=== PATIENT | male | born 1955 | race Caucasian/White ===

== ENCOUNTER → 2017-09-21 | Outpatient (CLI) | payer OTHER ==
[~2017-09-21] MED LIST: ALEVE220 MG PO; ATENOLOL 100MG100 MG PO; ATENOLOL 50 MG50 M1 PO; ATENOLOL 50MG T50 M1 PO; CIPRO500 MG PO; CLARITIN10 M2 PO; CLARITIN10 MG PO; ETODOLAC 400 M400 M1 PO; FLAX SEED OIL1000 MG PO; FLOMAX0.4 MG PO; HYDROCODONE-AP1 EAC6 PO; IBUPROFEN 200200 M1 PO; IBUPROFEN 800800 M1 PO; MUCINEX TA600 MG/TA2 PO; MULTIVITAMINS PO; MULTIVITAMINS1 EAC7 PO; NABUMETONE 750750 M1 PO; NORCO 5-325 TA1 EACH PO; PERCOCET 7.5-31 EACH PO; PERCOCET PO; WELLBUTRIN 100100 MG PO; WELLBUTRIN XL150 MG PO; ZOFRAN ODT4 MG PO; ZOFRAN4 MG PO
--- NOTE | 2017-10-06 13:59 | PAINCON ---
[address] [address] PAIN MANAGEMENT CONSULTATION Name: NAVIDEDMUND NORIEGA Room: [facility] SANDRA Martinez#: [id number] Admission: 09/21/17 Attend Phys: Toby Castellano MD Discharge: Date of : 51 Report #: [id number] THIS REPORT FOR: //name// CC: Toby Child DATE OF SERVICE: 09/21/2017 CHIEF COMPLAINT: Back pain and here for medication renewal. FOLLOWUP HISTORY: The patient is a 62-year-old gentleman who has been followed in the pain clinic by Dr. Floyd Crawford. This is my first time meeting this gentleman. He states that he has a history of back problems. He has had 3 surgeries. He is receiving about 60% benefit from his pain using a spinal cord stimulator. The [place] [facility] [place] His son lives there. 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 There was quite a bit of walking involved. The patient went to the [facility] as well as numerous other sites. He has noticed some worsening of his pain and discomfort. Overall, he feels that the oxycodone is beneficial. He would like to have this medication renewed. He also uses ibuprofen. He is not having any real problems with his stomach at this juncture. ALLERGIES: MORPHINE. CURRENT MEDICATIONS: Atenolol 100 mg daily, Mucinex 600 mg q.12 hours, Advil 200 mg, a total of 400 mg daily; multivitamin supplement; oxycodone 5/325 one p.o. t.i.d. p.r.n., and Flomax 0.4 mg q.24 hours. PAST MEDICAL HISTORY: Small bowel obstructions in the past, tonsillectomy, supraventricular tachycardia. PAST SURGICAL HISTORY: Lumbar L3-L5 surgery in 2013, hernia repair, left knee surgery in 2004, and tonsillectomy 1959. 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 Has a 1 pack per day tobacco use, 45-year history; 1-2 alcoholic drinks per day. REVIEW OF SYSTEMS: Generally good health, wears glasses, chronic sinus problems, and varicose veins. LABORATORY DATA: 1. MRI of the lumbar spine dated 01/13/2017 again identified as a leftward convexity scoliosis. There is straightening of the normal lumbar lordosis. There is an unchanged chronic compression deformity of the superior endplate of L3. There appears multilevel lumbar laminectomy and bone fusion. 2. L2-L3 demonstrates disc desiccation. [place] [address] PAIN MANAGEMENT CONSULTATION Name: EDMUND SHOEMAKER Room: [facility]#: [id number] Admission: 09/21/17 Attend Phys: Toby Castellano MD Discharge: Date of : 51 Report #: [id number] hyperintensity which is unchanged from previous studies. The prior study appears to be decompression of the disc at this level with bilateral neural foraminal narrowing present. 3. L3-L4 demonstrate disc space narrowing and disc desiccation. 4. L4-L5 demonstrates disc space narrowing and disc desiccation with a posterior disc osteophyte complex, which effaces the ventral thecal sac. There is bilateral facet hypertrophy and a laminectomy defect. There is endplate reaching and intraspinal spurring related to the facet arthrosis. This causes bilateral neural foraminal stenosis, left greater than right with effacement and flattening of both the L4-L5 nerve roots. The findings are greatest at the left, but unchanged from 2013. 5. L5-S1 demonstrates mild posterior disc bulging, which is eccentric to the left. There is a laminectomy defect. Again identified in the left lateral recess narrowing and severe left-sided neural foraminal stenosis with marked flattening of the exiting L5 nerve root. There is eccentric disc space narrowing and endplate osteophyte formation on the left as well. Some marked left-sided neural foraminal stenosis has not significantly changed from prior study. PAIN CLINIC ASSESSMENT: 1. History of osteoarthritis. The patient has arthritic changes in the lower back. 2. Height 5 feet 7 inches. Weight 143 pounds, BMI is 22. 3. VITAL SIGNS: Blood pressure 146/88, heart rate 69, respiratory rate 16, room air saturation 95, and temperature 98.2. 4. Pain intensity 4/10. 5. Fall risk. The patient has not fallen in the last 3 months. 6. Blood thinner. The patient is not taking a blood thinning medication. 7. Hypertension. The patient is being treated for hypertension. 8. Opioid greater than 6 weeks. The patient is on an opioid regimen and receives his medications from one source. 9. Risk assessment tool. 10. Functional assessment tool. 11. Recreational drug use. The patient denies use of recreational drugs. 12. Tobacco. He has a greater than 43-year history of tobacco, 1 pack per day. 13. Alcohol. The patient does drink alcoholic beverages on occasion. PHYSICAL EXAMINATION: GENERAL: The patient is a well-developed, well-nourished white male. He appears his stated age. He is alert and oriented x 3. Affect is appropriate. Speech is fluent. HEENT: Normocephalic, atraumatic. Extraocular eye muscles intact. Hearing is within normal limits. NECK: Without adenopathy or JVD, no bruits. HEART: Regular rate. S1, S2. LUNGS: Clear to auscultation without [place] [address] PAIN MANAGEMENT CONSULTATION Name: NAVIDEDMUND LEANN Room: [facility]#: [id number] Admission: 09/21/17 Attend Phys: Toby Castellano MD Discharge: Date of : 53 Report #: [id number] ABDOMEN: Nontender. EXTREMITIES: Upper extremity muscle strength is judged to be 5/5 for the major muscle groups with symmetry without sensory changes. Deep tendon reflexes trace. Lower extremity muscle strength is judged to be 5/5 for the major muscle groups. Decreased to absent knee reflexes at the knees and ankles bilaterally. The patient complains of pain and discomfort in the lower portion of his back pain down into the lower portion of his left hip and leg. IMPRESSION: 1. Lumbar radiculopathy with history of spinal cord stimulator placement. 2. Hypertension. 3. Chronic pain. 4. Prostatic hypertrophy. RECOMMENDATIONS: We discussed treatment options with the patient. At this juncture, he feels that things are going reasonably well. The stimulator is quite helpful. He would like to have his oxycodone renewed. The patient states that he sometimes has some constipation with use of opioid medications, so he takes them oftentimes very infrequently. He feels that things have improved since his has provided him with Senokot-S. He feels that is quite helpful in keeping his bowels moving. He will return to the pain clinic as needed. We would like to thank you for letting us participate in his care. We hope he continues to improve. <ELECTRONICALLY SIGNED> By: Toby Castellano MD 10/06/17 1359 [id number]. Jordy Castellano MD /nt
== END ==
LOC: M.PC 00:07
DX: M54.16 Radiculopathy, lumbar region (principal); I10 Essential (primary) hypertension; N40.0 Benign prostatic hyperplasia without lower urinary tract symptoms; G89.29 Other chronic pain

== ENCOUNTER → 2017-11-03 | Outpatient (CLI) | payer OTHER ==
--- NOTE | 2017-11-04 07:04 | PAINCON ---
[facility] [address] [place] [address] PAIN MANAGEMENT CONSULTATION Name: EDMUND SHOEMAKER Room: [facility] SANDRA Martinez#: [id number] Admission: 11/03/17 Attend Phys: Kwan Wilson Discharge: Date of : 53 Report #: [id number] THIS REPORT FOR: //name// CC: Floyd Crawford The patient is a very pleasant 62-year-old gentleman, long been treated for symptomatic lumbar radiculopathy. He was last seen in the pain clinic on 09/21/[address] Jordy Castellano. Prior, he had treated him for lumbar radicular symptoms. We had trialled a spinal cord stimulator. Ultimately, this was implanted (Muxlim) with good overall improvement in baseline pain. The patient is status post lumbar decompressive laminectomy at L5-S1. The patient notes that the spinal cord stimulator affords very good relief of his ongoing radicular pain. He uses hydrocodone 5/325, 0-1/2 a tablet a day up to a max of 3-4 tablets a day. Last prescription for 75 tablets was generated about 6 weeks ago. He returns to pain clinic today noting subjective pain score is 1-2 on a VAS. Pain is primarily low back, left hip. He has contacted [employer] regarding adjusting the spinal cord stimulator. Notes pain is "nuisance" and really does not interfere with function. PHYSICAL EXAMINATION: Shows pleasant a 5 feet 7 inches, 142 pound gentleman, BMI is 22.9 kilograms per meter squared. Blood pressure 136/77, pulse 69, respirations 16. Rises from chair easily. Gait is tandem. Diffuse tenderness across the low back. No discrete trigger points are noted. Still has some weakness in the left side, though this has been present since his back surgery now some 40 years ago. We reviewed the fact that opiate medications are being used to provide analgesia adequate to support activities of daily living, not attempting to achieve a specific pain score on the 0-10 Visual Analog Scale. The current opiate medications are providing sufficient analgesia to allow the patient to participate in activities of daily living. The patient is not exhibiting any aberrant behavior suggestive of drug diversion. The patient is not having any adverse reactions to medications. The patient is not suffering from daytime somnolence or mental acuity changes. The patient is managing opiate-induced constipation with appropriate [id number] agents and dietary considerations. The patient was counseled on concern for caution with operating a motor vehicle while using opiate medications. A physical exam was performed and the patient's functional status was evaluated. All patients with back pain were advised against the bed rest greater than 4 days and were advised to return to normal activities. Pain score assessment was noted and the treatment plan was reviewed with [place] [address] PAIN MANAGEMENT CONSULTATION Name: EDMUND SHOEMAKER [facility] [id number] Admission: 11/03/17 Attend Phys: Kwan Wilson Discharge: Date of : 53 Report #: [id number] medications, both prescribed and OTC were reviewed and reconciled on the electronic medical record. Tobacco screening was accomplished and smoking cessation was advised when indicated. BMI was noted and diet/exercise modification was recommended for all patients following outside normal parameters. I reviewed with the patient today their responsibilities to safeguard prescription medications, reviewed their responsibility to utilize medications only as prescribed by the physician. They are to seek and receive pain medications only from 1 physician group ( [facility]). They are to use 1 pharmacy and keep the clinic informed if they change pharmacies. Their responsibilities include making followup visits in a timely fashion and to avoid abrupt discontinuation of medication usage. Their responsibilities further include bringing their medications (bottles from the pharmacy with residual pills) to the visit for possible confirmation of pill counts and the patient understands it is their responsibility to submit to random drug screens to ensure both that the medications prescribed are present, and that no other controlled substances are present. All prescriptions provided today were generated electronically. ASSESSMENT: Chronic axial back pain, lumbar radiculopathy, status post decompressive laminectomy, ongoing neuropathic pain. We will control with nominal opiate analgesic. RECOMMENDATIONS: We will renew Percocet 5/325, limit 90 tablets for 30 days, though in reality, this will probably last him 6-10 weeks. Discharged in good and stable condition. Follow up on an as needed basis. <ELECTRONICALLY SIGNED> By: Floyd Crawford DO 11/04/17 0704 [id number] 1857Floyd Crawford DO /nt
== END ==
LOC: M.PC 04:47
DX: M54.16 Radiculopathy, lumbar region (principal); G89.29 Other chronic pain

== ENCOUNTER → 2017-12-28 | Outpatient (CLI) | payer OTHER ==
--- NOTE | 2018-02-07 10:00 | PAINCON ---
[address] [address] PAIN MANAGEMENT CONSULTATION Name: EDMUND SHOEMAKER LEANN Room: [facility] Martinez#: [id number] Admission: 12/28/17 Attend Phys: Toby Castellano MD Discharge: Date of : 53 Report #: [id number] THIS REPORT FOR: //name// CC: Toby Child DO DATE OF SERVICE: 12/28/2017 CHIEF COMPLAINT: Low back pain on the left with pain in the left hip and down the left leg. The pain has been a little worse over the last month. FOLLOWUP HISTORY: The patient is a 62-year-old gentleman, who has been seen in the pain clinic in the past because of chronic pain. He has had back problems. He has had three back surgeries. He does have a spinal cord stimulator in place at this juncture, which he finds provides him about 60% pain relief. Overall, he feels that his medications are helpful. He finds that the oxycodone continues to be beneficial. At this juncture, he has returned today for renewal of his medications. He has had no complication from their use. He feels that the ibuprofen remains helpful. He feels that the DotAlign spinal cord stimulator is beneficial. He feels that his pain is not as overbearing as it was prior to his stimulator placement. CURRENT MEDICATIONS: Atenolol 100 mg daily, Mucinex 600 mg q.12 hours, Advil 200 mg, total of 400 mg daily; multivitamin supplements, oxycodone 5/325 one p.o. t.i.d. p.r.n., and Flomax 0.4 mg q.24 hours. ALLERGIES: THE PATIENT IS ALLERGIC TO MORPHINE. PAIN CLINIC ASSESSMENT: 1. History of osteoarthritis.: The patient has arthritic changes in his lower back. 2. Pain score is 2/10. 3. Fall risk. The patient has not fallen in the last 3 months. 4. Blood thinner. The patient is not on a blood thinning medication. 5. Hypertension. The patient is being treated for hypertension. 6. Opioid therapy greater than 6 weeks. The patient is receiving his opioid medications in the pain clinic, [facility]. 7. Risk assessment tool. 8. Functional assessment tool. 9. Recreational drug use. The patient denies use of recreational drugs. 10. Tobacco: The patient has a greater than 43-year history of tobacco smoke, smokes 1 pack per day. 11. Alcohol: The patient denies use of alcoholic beverages. PHYSICAL EXAMINATION: [place] [address] PAIN MANAGEMENT CONSULTATION Name: NAVIDEDMUND LEANN Room: [facility]#: [id number] Admission: 12/28/17 Attend Phys: Toby Castellano MD Discharge: Date of : 53 Report #: [id number] GENERAL: The patient is a well-developed, well-nourished white male. He appears his stated age. He is alert and oriented x 3. His affect is appropriate. Speech is fluent. Height is 5 feet 7 inches, weight is 143 pounds, and BMI is 22.5. VITAL SIGNS: Blood pressure is 131/69, heart rate is 63, respiratory rate is 16, room air saturation is 96%, and temperature is 98.0. HEENT: Normocephalic, atraumatic. Extraocular eye muscles are intact. Hearing is within normal limits. Mucous membranes are moist. NECK: Without adenopathy or JVD. No bruits. HEART: Regular rate. S1, S2. LUNGS: Clear to auscultation without rhonchi or rales. EXTREMITIES: Upper extremity muscle strength is judged to be 5/5 for the major muscle groups of the upper extremity with symmetry and without sensory changes. Deep tendon reflexes are trace. Lower extremity muscle strength is judged to be 5/5 for the major muscle groups. Decreased absent reflexes at the knees and ankles bilaterally. The patient does complain of some pain and discomfort in the lower portion of his back with pain that is radiating down the left hip and into the left leg. IMPRESSION: 1. Lumbar radiculopathy with history of spinal cord stimulator, status post three surgeries in the lumbar area. 2. Hypertension. 3. Chronic pain. 4. Prostatic hypertrophy. RECOMMENDATIONS: We have discussed treatment options with the patient. Risks and benefits of opioid medications were discussed. He has had a long discussion with Dr. Crawford as well. He is aware that the medications could be helpful. He notes that use of opioid medications can cause dependence/addiction. The patient feels that he is using his medication as prescribed. They enable him to engage in activities of daily living with less discomfort. He is aware that prolonged use of these medications can become less effective as a result of tolerance. He would like to have his medications renewed. A script for his medications has been written. A script for Percocet 5/325 one p.o. t.i.d., total of 90 tablets have been dispensed. He will follow up in the future as needed. We would like to thank you for letting us to participate in his care. We hope he continues to improve. <ELECTRONICALLY SIGNED> By: Toby Castellano MD 02/07/18999 [id number] [id number]. Jordy Castellano MD /RENEA
== END ==
LOC: M.PC 03:48
DX: M54.16 Radiculopathy, lumbar region (principal); I10 Essential (primary) hypertension; N40.1 Benign prostatic hyperplasia with lower urinary tract symptoms; G89.29 Other chronic pain; M19.90 Unspecified osteoarthritis, unspecified site

== ENCOUNTER → 2018-02-03 | Outpatient (CLI) | payer OTHER ==
--- NOTE | 2018-02-07 10:30 | PAINCON ---
[address] [address] PAIN MANAGEMENT CONSULTATION Name: EDMUND SHOEMAKER Room: [facility] Martinez#: [id number] Admission: 02/03/18 Attend Phys: Toby Castellano MD Discharge: Date of : 51 Report #: [id number] THIS REPORT FOR: //name// CC: Toby Child DATE OF SERVICE: 02/03/2018 CHIEF COMPLAINT: Here for medications. Pain in the left hip and down the left leg remains. HISTORY OF PRESENT ILLNESS: The patient is a 62-year-old gentleman who has been followed in the pain clinic because of chronic pain. He has pain and discomfort which involves his low back area. He has undergone 3 back surgeries. Does have a spinal cord stimulator in place. Feels that it is helpful. Finds that his oxycodone continues to be beneficial. He returns today with the desire to undergo renewal of his medications. States that there is quite a bit of chaos going on in his house. Has some grandkids at his house. Has heating and cooling group at his house. Has other professionals working at his house. He feels that the combination of all these things has made his life somewhat complicated. Continues to have pain that is radiating down from his left hip to his left calf in the L5-S1 distribution. Finds that the 7.5 oxycodone medications, continue to be helpful. He had been breaking them in half. This will provide him with 3.25 mg of oxycodone. Now that he realizes that 5 mg taking one tablet at time is more pain relieving. ALLERGIES: MORPHINE. CURRENT MEDICATIONS: Atenolol 100 mg daily, Mucinex 60 mg q.12h., Advil 200 mg, total of 400 mg taken, multivitamin, oxycodone 5/325 one p.o. t.i.d., and Flomax 0.4 mg q. 24 hours. PAIN CLINIC ASSESSMENT/PQRS: 1. History of osteoarthritis. The patient has had some arthritic change in his low back area. Has left hip pain. 2. Height 5 feet 7 inches, weight 142 pounds, BMI is 22.2. 3. Vital signs: Blood pressure 143/79, heart rate 73, respiratory rate 16, room air saturation 97%. Temperature 98.2. 4. Pain score 2/10. 5. Fall history: The patient has not fallen in the last 3 months. 6. Blood thinner. The patient is not on a blood thinning medication. 7. Hypertension. The patient is being treated for hypertension. 8. Opioid medications greater than 6 weeks. The patient receives this medication from [facility], the pain clinic. 9. Risk assessment tool. 10. [place] [address] PAIN MANAGEMENT CONSULTATION Name: EDMUND SHOEMAKER Room: [facility]#: [id number] Admission: 02/03/18 Attend Phys: Toby Castellano MD Discharge: Date of : 53 Report #: [id number] 11. Recreational drug use: The patient denies. 12. Tobacco: The patient has greater than a 49-iszt-vzmh history of tobacco smoking. Continues to smoke 1 pack of cigarettes per day. I have discussed the benefits of smoking cessation. 13. Alcohol: The patient denies frequent use of alcoholic beverages. PHYSICAL EXAMINATION: GENERAL: The patient is a well-developed, well-nourished white male. Appears his stated age. He is alert and oriented x 3. His affect is appropriate. Speech is fluent. Height 5 feet 7 inches. HEENT: Normocephalic, atraumatic. Extraocular eye muscles intact. Sclerae nonicteric. Mucous membrane is moist. Hearing is within normal limits. NECK: Without adenopathy or JVD, bruits. HEART: Regular rate. S1, S2. LUNGS: Clear to auscultation without rhonchi or rales. EXTREMITIES: Without significant scoliosis, kyphosis, or lordosis. Upper extremity muscle strength is judged to be 5/5 for the major muscle groups. The patient's deep tendon reflexes are traces. Lower extremity muscle strength is judged to be 5/5. The patient has decreased/absent reflexes at the knees and ankles bilaterally. The patient has some pain and discomfort in his left hip and left calf. Walks with a slightly antalgic gait. Discomfort in the L5-S1 distribution. IMPRESSION: 1. Lumbar radiculopathy with history of spinal cord stimulator, status post three surgeries in the lumbar spine. 2. Hypertension. 3. Chronic pain treated with opioid medication. 4. Prostatic hypertrophy. RECOMMENDATIONS: We discussed treatment options with the patient. Risks and benefits of opioid therapy were discussed. The patient feels that the opioid medications are helpful. He was taking one half tablet. This would be about 3.25 mg of oxycodone. Realize, that he could take a whole 5mg tablet. He was taking less than he could because he was breating the tablets in half. He thought they were 7.5 mg, but they actuality are 5mg tabs. He will continue with his medication. Feels that there is some calamity going on in his house. Has had some problem with heating and cooling. Has had his grandkids over and has another contractor working out of his house at this juncture to help fix a problem. He would like to continue with his medications. A script for the medications of OxyContin 5 mg 1 p.o. t.i.d., total of 90 [place] [address] PAIN MANAGEMENT CONSULTATION Name: ÍVCTOREDMUND FARMER Room: [facility]#: [id number] Admission: 02/03/18 Attend Phys: Toby Castellano MD Discharge: Date of : 53 Report #: [id number] We would like to thank you for letting us participate in his care. We hope he continues to improve. <ELECTRONICALLY SIGNED> By: Toby Castellano MD 02/07/18 1030 [id number]. Jordy Castellano MD /nt
== END ==
LOC: M.PC 05:19
DX: M19.90 Unspecified osteoarthritis, unspecified site (principal); M25.552 Pain in left hip; I10 Essential (primary) hypertension; W19.XXXA Unspecified fall, initial encounter; Z79.891 Long term (current) use of opiate analgesic

== ENCOUNTER → 2018-03-24 | Outpatient (CLI) | payer OTHER ==
--- NOTE | 2018-04-01 17:20 | PAINCON ---
[address] [address] PAIN MANAGEMENT CONSULTATION Name: NAVIDEDMUND NORIEGA Room: [facility] Martinez#: [id number] Admission: 03/24/18 Attend Phys: Toby Castellano MD Discharge: Date of : 51 Report #: [id number] THIS REPORT FOR: //name// CC: Toby Child DATE OF SERVICE: 03/24/2018 CHIEF COMPLAINT: Low back pain and the spinal cord stimulators relief, 50%-70% of the pain. FOLLOWUP HISTORY: The patient is a 62-year-old gentleman who has been followed in the pain clinic because of chronic pain. As you recall, he has a history of low back pain. He has had 3 back surgeries. He has undergone a spinal cord stimulator. Finds that the this is helpful. Feels that use of the spinal cord stimulator in conjunction with the oxycodone 5 mg 1 p.o. t.i.d. are helpful. He is having no complications. As you may recall, he continues to work. He is quite active. He works for [employer]. Rates his pain as a 2/10. He would like to continue with his current medical regimen of oxycodone. ALLERGIES: MORPHINE. MEDICATIONS: Atenolol 100 mg daily, Mucinex 60 mg q.12 hours, Advil 200 mg total of 400 mg, multivitamin, and oxycodone 5/325 one p.o. t.i.d., Flomax 0.4 mg q. 24 hours. PAIN CLINIC ASSESSMENT/PQRS: 1. History of osteoarthritis. The patient has some arthritic changes in his low back area. Has left hip pain. 2. The patient is not being treated for history of osteoarthritis. 3. Height 5 feet 7 inches, weight 145 pounds, BMI is 22.8. 4. Vital signs: Blood pressure 136/80, heart rate 70, respiratory rate 16, room air saturation 95%, temperature 98.2. 5. Pain intensity 06/05. 6. Fall history: The patient has not fallen in the last 3 months. 7. Blood thinner. The patient is not on a blood thinning medication. 8. Hypertension. The patient is being treated for hypertension. 9. Opioids greater than 6 weeks. The patient receives medication from one source, the pain clinic. 10. Risk assessment tool, low for opioid use. 11. Functional assessment tool. 12. Recreational drug use. The patient denies use of recreational drugs. 13. Tobacco: The patient has greater than [id number] history of smoking. The patient continues to smoke 1 pack of cigarettes per day. Discussed the benefits of smoking cessation with the patient. 14. Alcohol: The patient denies [place] [address] PAIN MANAGEMENT CONSULTATION Name: NAVIDEDMUND SOWERY Room: [facility]#: [id number] Admission: 03/24/18 Attend Phys: Toby Castellano MD Discharge: Date of : 51 Report #: [id number] PHYSICAL EXAMINATION: GENERAL: The patient is a well-developed, well-nourished white male. Appears his stated age. He is alert and oriented x 3. His affect is appropriate. Speech is fluent. HEENT: Normocephalic, atraumatic. Extraocular eye muscles intact. Sclerae nonicteric. Mucous membranes are moist. NECK: Without adenopathy or JVD. HEART: Regular rate rest S1, S2. LUNGS: Clear to auscultation without rhonchi or rales upper extremity without significant scoliosis, kyphosis or lordosis. Upper extremity muscle strength 5/5 for the major muscle groups. The patient has lower extremity muscle strength which is 5-/5. Has some decreased/absent reflexes knees and ankles bilaterally. Complains of some pain and discomfort in his left hip and pain down into the left calf. Walks with a slight antalgic walk. Has discomfort in the L5-S1 distribution. IMPRESSION: 1. Lumbar radiculopathy with history of spinal cord stimulator, status post three surgeries in the lumbar spine. 2. Hypertension. 3. Chronic pain treated with opioid therapy. 4. Prostatic hypertrophy. RECOMMENDATIONS: We discussed treatment options with the patient. We will continue with his current medications. A script for oxycodone 5 mg 1 p.o. t.i.d. has been written. The patient will call us if he has any concerns. He feels that his pain overall as better at about 75% with use of a spinal cord stimulator. We would like to thank you for letting us participate in his care. We hope he continues to improve. He will call us if he has any concerns. <ELECTRONICALLY SIGNED> By: Toby Castellano MD 04/01/18 1720 [id number]. Jordy Castellano MD /nt
== END ==
LOC: M.PC 03:48
DX: M54.16 Radiculopathy, lumbar region (principal); G89.29 Other chronic pain; I10 Essential (primary) hypertension; N40.0 Benign prostatic hyperplasia without lower urinary tract symptoms; Z79.891 Long term (current) use of opiate analgesic

== ENCOUNTER → 2018-05-03 | Outpatient (CLI) | payer OTHER ==
--- NOTE | ~2018-05-03 | PAINCON ---
[address] [address] PAIN MANAGEMENT CONSULTATION Name: NAVIDEDMUND NORIEGA Room: [facility] Juan#: [id number] Admission: 05/03/18 Attend Phys: Toby Castellano MD Discharge: Date of : 51 Report #: [id number] THIS REPORT FOR: //name// CC: Toby Child ____ ____ DATE OF SERVICE: 05/03/2018 CHIEF COMPLAINT: Here for medication renewal. I got over case of bronchitis. FOLLOWUP HISTORY: The patient is a 62-year-old gentleman who has been followed in the pain clinic because of chronic pain. He rates his pain today as a 2-3/10. Has pain in his low back. Pain radiates down into his left leg. States that about a week ago, he was feeling quite poorly. Had some difficulty breathing. Went to an urgent care center. He was told that he had a significant bronchitis. He was given antibiotics and medication. States that things have turned around significantly. He continues to try to decrease his use of tobacco. As you recall, he smokes about a pack a day and has smoked for the last 4-5 years. He is hopeful that he will continue to decrease his tobacco usage. ALLERGIES: MORPHINE. MEDICATIONS: Atenolol 100 mg -- history of SVT, Mucinex 60 mg, Advil 200 mg, multivitamin, oxycodone 5/325 one p.o. t.i.d., Flomax 0.4 mg every 48 hours. PAIN CLINIC ASSESSMENT/PQRS: 1. History of osteoarthritis. The patient has some osteoarthritic changes in the low back area, has left hip pain. 2. The patient is not being treated for rheumatoid arthritis. 3. Height 5 feet 7 inches, weight 145 pounds, BMI is 22.2. 4. Vital signs: Blood pressure 133/80, heart rate is 68, respiratory rate 18, room air saturation 96%, temperature 98.3. 5. Pain intensity 06/05. 6. Fall history. The patient has not fallen in the last 3 months. 7. Blood thinner. The patient is not on blood thinning medication. 8. Hypertension. The patient is not being treated for hypertension. 9. Opioid greater than 6 weeks. The patient receives medications from [facility]. 10. Risk assessment tool, low for opioid use. 11. Functional assessment tool. 12. Recreational drug use. The patient denies use of recreational drugs. 13. Tobacco: The patient has about a 45 years smoking history, is down to less than a pack of cigarettes per day, continues to work for the goal of stopping tobacco use. Again, discussed the benefits of tobacco cessation [place] [address] PAIN MANAGEMENT CONSULTATION Name: NAVIDEDMUND NORIEGA [facility] [id number] Admission: 05/03/18 Attend Phys: Toby Castellano MD Discharge: Date of : 51 Report #: [id number] patient 14. Alcohol: The patient denies use of alcoholic beverages on a regular basis, may drink one to two alcoholic beverages. PHYSICAL EXAMINATION: GENERAL: The patient is well-developed, well-nourished white male. Appears his stated age. He is alert and oriented x3. Affect is appropriate. Speech is fluent. HEAD, EYES, EARS, NOSE, AND THROAT: Normocephalic, atraumatic. Extraocular eye muscles intact. Sclerae nonicteric. Mucous membranes are moist. NECK: Without adenopathy or JVD. HEART: Regular rate. S1, S2. LUNGS: Generally clear, without significant rhonchi or rales. MUSCULOSKELETAL: Without scoliosis, kyphosis or lordosis. Upper extremity muscle strength is judged to be 5/5 for the major muscle groups. Lower extremity muscle strength 5-/5 with pain down into the left leg. The patient is not showing much of an antalgic gait today. Discomfort when present is the L5-S1 distribution. IMPRESSION: 1. Lumbar radiculopathy with history of spinal cord stimulator, status post three surgeries in the lumbar spine. 2. Hypertension. 3. Chronic pain treated with opioid therapy. 4. Prostatic hypertrophy. 5. Recent episode of bronchitis. RECOMMENDATIONS: We discussed treatment options with the patient. At this juncture, we will continue with his current medications. He feels that things are about 70% better with his medications. He feels spinal cord stimulator still is beneficial. He has returned today for renewal of his medications. He feels his medications are working well, would like to continue their use. Again, we discussed the problems with opioid medications, which could be of addiction as well as in less affected secondary to tolerance. Overall, he feels things are going well. A script for his medications has been written. He will follow up in the future as needed. We would like to thank you for letting us to participate in his care. By: [id number]. Jordy Castellano MD /RENEA
== END ==
LOC: M.PC 08:00
DX: M54.16 Radiculopathy, lumbar region (principal); G89.29 Other chronic pain; I10 Essential (primary) hypertension; N40.0 Benign prostatic hyperplasia without lower urinary tract symptoms; J40 Bronchitis, not specified as acute or chronic; Z79.899 Other long term (current) drug therapy

== ENCOUNTER → 2018-05-31 | Outpatient (CLI) | payer OTHER ==
--- NOTE | ~2018-05-31 | PAINCON ---
[address] [address] PAIN MANAGEMENT CONSULTATION Name: NAVIDEDMUND LEANN Room: [facility] Martinez#: [id number] Admission: 05/31/18 Attend Phys: Toby Castellano MD Discharge: Date of : 51 Report #: [id number] THIS REPORT FOR: //name// CC: Toby Child DATE OF SERVICE: 05/31/2018 CHIEF COMPLAINT: Here for medications. I have gotten cold. Otherwise, I would like to get an injection. FOLLOWUP HISTORY: The patient is a 62-year-old gentleman who has been followed in the pain clinic. He has chronic pain. His pain is a bit more problematic. He is experiencing pain that is radiating down the lower portion of his back into his left leg and involving his foot. He notes some numbness and tingling. He is still in the process of getting over the cold. He would like to get an epidural steroid injection, but feels that his cold might make things worse. He has had a history of bronchitis. He has been treated in the past with antibiotics. He still smokes and is trying to decrease his tobacco use. He feels that the change in weather, which has become quite cold has exacerbated his discomfort. Notes that pain increases with activity as well as with the cold weather and with prolonged walking, sitting and standing. Does have a spinal cord stimulator in place. ALLERGIES: MORPHINE. MEDICATIONS: Atenolol 100 mg - history of SVT, Mucinex 60 mg, Advil 200 mg, multivitamins, oxycodone 5/325 one p.o. t.i.d., Flonase 0.4 mg q. 48 hours. PAIN CLINIC ASSESSMENT: 1. History of osteoarthritis in the low back area and then his left hip. He is not being treated for rheumatoid arthritis. 2. Height 5 feet 7 inches, weight 144 pounds, BMI is 22.6. 3. Vital signs: Blood pressure 141/79, heart rate 74, respiratory rate 16, room air saturation 95%, and temperature is 98.2. 4. Pain intensity score 2-3/10. 5. Fall history: The patient has not fallen since we saw him last. 6. Blood thinner. The patient is not on a blood thinning medication. 7. Hypertension. The patient is not being treated for hypertension. 8. Opiates greater than 6 weeks. The patient receives his medications from one source, the pain clinic. 9. Risk assessment tool, low for a little opioid use. 10. Functional assessment tool. 11. Recreational drug use. The patient denies use of recreational drugs use. 12. Tobacco. The patient has a 45-year smoking history. He is down to less than a pack of cigarettes per day, continues to decrease [place] [address] PAIN MANAGEMENT CONSULTATION Name: EDMUND SHOEMAKER [facility] [id number] Admission: 05/31/18 Attend Phys: Toby Castellano MD Discharge: Date of : 51 Report #: [id number] at one half pack a day at this juncture. 13. Alcohol. The patient denies use of alcoholic beverages on a regular basis. PHYSICAL EXAMINATION: GENERAL: The patient is a well-developed, well-nourished white male. Appears his stated age. He is alert and oriented x 3. His affect is appropriate. Speech is fluent. HEENT: Normocephalic, atraumatic. Extraocular eye muscles intact. Sclerae nonicteric. Mucous membranes are moist. NECK: Without adenopathy or JVD. HEART: Regular rate. LUNGS: Generally clear. The patient has some coughing and rales. MUSCULOSKELETAL: Without significant scoliosis, kyphosis, or lordosis. Upper extremity muscle strength is judged to be 5-/5 for the major muscle groups. Lower extremity muscle strength 5-/5 on the left side. The patient has pain and discomfort which is radiating down into his left leg with numbness and tingling and sensory changes in the L5-S1 dermatomal distribution. IMPRESSION: 1. Lumbar radiculopathy with history of spinal cord stimulator, status post three surgeries in the lumbar spine area. 2. Hypertension. 3. Chronic pain treated with opioid therapy. 4. Prostate hypertrophy. 5. Episodes of bronchitis. 6. Improving the upper respiratory infection. RECOMMENDATION: The patient will return to the pain clinic after resolution of the upper way infection. He will then undergo an epidural steroid injection. Risks and benefits of the procedure had been discussed with the patient. He will return for evaluation and possibility of an injection in the future. A script for his medications of oxycodone 5 mg 1 p.o. t.i.d. have been written. We would like to thank you for letting us participate in his care. We hope he continues to improve. By: [id number]. Jordy Castellano MD /ceci
== END ==
LOC: M.PC 04:43
DX: M54.16 Radiculopathy, lumbar region (principal); I10 Essential (primary) hypertension; G89.29 Other chronic pain; J40 Bronchitis, not specified as acute or chronic; J06.9 Acute upper respiratory infection, unspecified; N40.1 Benign prostatic hyperplasia with lower urinary tract symptoms; Z79.899 Other long term (current) drug therapy; Z79.891 Long term (current) use of opiate analgesic

== ENCOUNTER → 2018-06-28 | Outpatient (CLI) | payer OTHER ==
--- NOTE | ~2018-06-28 | PAINCON ---
[address] [address] PAIN MANAGEMENT CONSULTATION Name: VÍCTORDICKSONRUBYEDMUND NORIEGA Room: [facility] Juan#: [id number] Admission: 06/28/18 Attend Phys: Toby Castellano MD Discharge: Date of : 51 Report #: [id number] THIS REPORT FOR: //name// CC: Toby Child DATE OF SERVICE: 06/28/2018 CHIEF COMPLAINT: Pain down the left leg with numbness and tingling. FOLLOWUP HISTORY: The patient is a 62-year-old gentleman who has been followed in the Pain Clinic. As you recall, he has a history of low back pain. He has undergone back surgery in the past. He has been experiencing increased pain and discomfort radiating down to the left leg. He notes that the pain has been quite problematic this morning. He notes that with the cold weather, things have changed. He has tried and adjusted his dorsal column stimulator but still finds his pain is quite uncomfortable. He has had epidural steroid injections in the past. He would like to proceed with an epidural steroid injection at this juncture. Pain continues to radiate down his left leg, involving the foot. He feels that the Percocet medication is of some help. Overall, he is 78-80% improved. The patient continues to work on decreasing the use of tobacco. ALLERGIES: MORPHINE. CURRENT MEDICATIONS: Atenolol 100 mg - history of SVT, Mucinex 60 mg, Advil 200 mg, multivitamins, oxycodone 5/325s one p.o. t.i.d., Flonase 0.4 mg q. 48 hours. PAIN CLINIC ASSESSMENT/PQRS: 1. History of osteoarthritis of low back area, involving the left hip. He is not being treated for rheumatoid arthritis. 2. Height 5 feet 7 inches, weight 143 pounds, BMI is 22. 3. Vital signs: Blood pressure 145/76, heart rate 69, respiratory rate 16, room air saturation 94%, temperature 98.1. 4. Pain intensity: 06/05. 5. Fall history: The patient has not fallen in the last 3 months. 6. Blood thinner: The patient is not on a blood thinning medication. 7. Hypertension: The patient is not being treated for hypertension. 8. Opioids greater than 6 weeks: The patient is receiving his medication through [facility]. 9. Risk assessment tool: Low for opioid use. 10. Functional assessment tool. 11. Recreational drug use. The patient denies use of recreational drugs. 12. Tobacco: The patient continues to smoke, has a 45-year history of smoking. I have encouraged the patient to decrease smoking and the patient states that he is trying. 13. Alcohol: The patient denies use of alcoholic [place] [address] PAIN MANAGEMENT CONSULTATION Name: EDMUND SHOEMAKER [id number] Admission: 06/28/18 Attend Phys: Toby Castellano MD Discharge: Date of : 51 Report #: [id number] PHYSICAL EXAMINATION: GENERAL: The patient is a well-developed, well-nourished white male. He appears his stated age. He is alert and oriented x 3. His affect is appropriate. Speech is fluent. HEENT: Normocephalic, atraumatic. Extraocular eye muscles are intact. Sclerae are nonicteric. Mucous membranes are moist. NECK: Without adenopathy or JVD. HEART: Regular rate. LUNGS: Clear to auscultation, without rhonchi or rales. MUSCULOSKELETAL: Without significant scoliosis, kyphosis, or lordosis: The patient has a well-healed scar in the lower portion of his back. He has an indwelling spinal cord stimulator on the left side of his low back area. The patient has pain and discomfort, which is radiating down into the L5-S1 dermatomal distribution in the back of his leg with numbness and tingling. IMPRESSION: 1. Lumbar radiculopathy with history of spinal cord stimulator, status post 3 surgeries in the lumbar area. 2. Hypertension. 3. Chronic pain, treated with opioid therapy. 4. Prostate hypertrophy. 5. Episodes of bronchitis. 6. Improving/improved respiratory infection. RECOMMENDATION: The patient is having pain and discomfort, which is radiating down into the L5-S1 dermatomal distribution. The patient would like to proceed with a transforaminal epidural steroid injection to help quell and decrease the pain and discomfort he is experiencing. We discussed risks and benefits of the procedure. They include but are not limited to infection, worsening of pain, no improvement in pain, nerve damage, bleeding, and infection. The patient elects to proceed. PROCEDURE NOTE: The patient was assisted in getting onto the examination table. His back was sterilely prepped with a Betadine solution. It was allowed to dry. Fluoroscopy using the anterior, posterior as well as lateral viewing were implemented. At the left L5-S1 dermatomal area, 0.25% bupivacaine was infiltrated. A 20-gauge spinal needle was advanced into the appropriate placement using fluoroscopy, anterior as well as lateral. Aspiration was negative. A total of 80 mg Depo-Medrol, 40 mg triamcinolone was injected into this area. The patient tolerated this transforaminal epidural steroid injection without problem. A total of 52 seconds fluoroscopy time was used. The patient's pain decreased to 1 at the time of discharge. He will follow [place] [address] PAIN MANAGEMENT CONSULTATION Name: NAVIDEDMUND SOWERY Room: [facility]#: [id number] Admission: 06/28/18 Attend Phys: Toby Castellano MD Discharge: Date of : 51 Report #: [id number] We would like to thank you for letting us participate in his care. We hope he continues to improve. By: [id number]. Jordy Castellano MD /nt
== END | disposition home or self-care (01) ==
LOC: M.PC 04:28
DX: M54.16 Radiculopathy, lumbar region (principal); I10 Essential (primary) hypertension; G89.29 Other chronic pain; Z88.8 Allergy status to other drugs, medicaments and biological substances; M19.90 Unspecified osteoarthritis, unspecified site; Z79.899 Other long term (current) drug therapy; Z98.890 Other specified postprocedural states; F11.20 Opioid dependence, uncomplicated

== ENCOUNTER → 2018-08-02 | Outpatient (CLI) | payer MEDICARE, OTHER | END | disposition home or self-care (01) | LOC: M.PC 05:03 | DX: M54.16 Radiculopathy, lumbar region (principal) ==

== ENCOUNTER → 2018-08-30 | Outpatient (CLI) | payer MEDICARE, OTHER ==
--- NOTE | ~2018-08-30 | PAINCON ---
[facility] [address] [place] [address] PAIN MANAGEMENT CONSULTATION Name: EDMUND SHOEMAKER LEANN Room: [facility] Juan#: [id number] Admission: 08/30/18 Attend Phys: Toby Castellano MD Discharge: Date of : 51 Report #: [id number] THIS REPORT FOR: //name// CC: Toby Child DATE OF SERVICE: 08/30/2018 CHIEF COMPLAINT: Pain in the left leg has improved. I was up on a ladder about 18 feet cleaning off my gutters. Noticed some increased pain after that. HISTORY: The patient is a 63-year-old gentleman who has been followed in the pain clinic. As you recall, he has had surgeries in the low back area. Continues to have pain in the left hip area in the L5-S1 area. He underwent a transforaminal epidural steroid injection at the last visit. Notes that his pain was significantly improved after that. He did climb up on the roof and after that activity, he has noticed some increased pain. States that his pain is a 1/10 at this juncture. He has had no complications. ALLERGIES: MORPHINE. CURRENT MEDICATIONS: Atenolol 100 mg, history of SVT; Mucinex 60 mg; Advil 200 mg; multivitamin; oxycodone 5 mg 1 p.o. t.i.d., Flonase 0.4 mg q. 4 hours. PAIN CLINIC ASSESSMENT/PQRS: 1. The patient has pain and discomfort in the left hip with pain radiating down to the L5-S1 area. He is not being treated for rheumatoid arthritis. 2. Height 5 feet 7 inches, weight 139 pounds, BMI is 21.9. 3. Vital Signs: Blood pressure 121/69, heart rate 70, respiratory rate 16, room air saturation 95%, temperature 98.1. 4. Pain intensity 05/05. 5. Fall History: The patient has not fallen in the last 3 months. 6. Blood thinner. The patient is not on a blood thinning medication. 7. Hypertension. The patient is not being treated for hypertension. 8. Opiates greater than 6 weeks. The patient receives medications from [facility], the [facility] Clinic. 9. Risk assessment tool, low for opioid use. 10. Functional assessment tool. 11. Recreational drug use. The patient denies use of recreational drugs. 12. Tobacco: The patient continues to smoke, has a 45-year smoking history. Encouraged smoking cessation. 13. Alcohol: The patient denies use of alcoholic beverages. PHYSICAL EXAMINATION: GENERAL: The patient is a well-developed, well-nourished white male. Appears his stated age. He is alert and oriented x 3. [place] [address] PAIN MANAGEMENT CONSULTATION Name: EDMUND SHOEMAKER [facility] [id number] Admission: 08/30/18 Attend Phys: Toby Castellano MD Discharge: Date of : 51 Report #: [id number] Speech is fluent. HEENT: Normocephalic, atraumatic. Extraocular eye muscles intact. Sclerae nonicteric. Mucous membranes are moist. NECK: Without adenopathy or JVD. HEART: Regular rate. ABDOMEN: Nontender. Bowel sounds present. LUNGS: Clear to auscultation without rhonchi or rales. MUSCULOSKELETAL: Without significant scoliosis, kyphosis or lordosis. The patient has well-healed scar in the lower portion of his back. Has an indwelling spinal cord stimulator on the left side. Continues to have some pain in the left leg with tingling. IMPRESSION: 1. Lumbar radiculopathy with L5-S1 on the left. 2. Spinal cord stimulator in place status post three surgeries. 3. Hypertension. 4. Chronic pain treated with opioid therapy. 5. Prostatic hypertrophy. 6. Episodes of bronchitis. 7. Improved respiratory infection. RECOMMENDATIONS: We discussed treatment options with the patient. At this juncture, he will have a renewal of his pain medications. A script for oxycodone 5 mg 1 p.o. t.i.d. has been written. He will call us in the future. He will consider another transforaminal epidural steroid injection. We would like to thank you for letting us participate in his care. We hope he continues to improve. By: [id number]. Jordy Castellano MD /nt
== END ==
LOC: M.PC 04:37
DX: M54.16 Radiculopathy, lumbar region (principal); G89.29 Other chronic pain; I10 Essential (primary) hypertension; J06.9 Acute upper respiratory infection, unspecified; N40.0 Benign prostatic hyperplasia without lower urinary tract symptoms; J40 Bronchitis, not specified as acute or chronic; Z79.891 Long term (current) use of opiate analgesic

== ENCOUNTER → 2018-09-27 | Outpatient (CLI) | payer MEDICARE, OTHER ==
--- NOTE | 2018-10-26 14:27 | PAINCON ---
[address] [address] PAIN MANAGEMENT CONSULTATION Name: EDMUND SHOEMAKER LEANN Room: [facility] Juan#: [id number] Admission: 09/27/18 Attend Phys: Toby Castellano MD Discharge: Date of : 51 Report #: [id number] THIS REPORT FOR: //name// CC: Toby Child DATE OF SERVICE: 09/27/2018 FOLLOWUP COMPLAINT: Pain has been quite bad over the last 3 weeks. FOLLOWUP HISTORY: The patient is a 63-year-old gentleman who has been followed in the pain clinic because of chronic pain. As you recall, he has had surgeries in his low back area. Continues to have some left hip pain in the L5-S1 dermatomal distribution. Last injection was quite helpful. He has noted over the last couple of weeks, worsening of pain, which has been quite problematic. He has pain, which he rates as 5 initially and it can decrease to 2 with certain activities over a period of time. He has not had any falls. He feels that the medications that he is on are working reasonably well. ALLERGIES: MORPHINE. CURRENT MEDICATIONS: Atenolol 100 mg at bedtime for history of SVT, Mucinex 60 mg, Advil 200 mg, multivitamin, oxycodone 5 mg 1 p.o. t.i.d. PAIN CLINIC ASSESSMENT AND PQRS: 1. The patient has left hip pain with pain that radiates down in the L5-S1 dermatomal distribution. He is not being treated for rheumatoid arthritis. 2. Height 5 feet 7 inches, weight 139 pounds, BMI is 21.9. 3. Vital signs: Blood pressure 135/77, heart rate 69, respiratory rate 16, room air saturation 95%, temperature 98.2. 4. Pain intensity 2/10 at this juncture. 5. Fall history. The patient has not fallen in the last 3 months. 6. Blood thinner. The patient is not on any blood thinning medication. 7. Hypertension. The patient has not been treated for hypertension. 8. Opioids greater than 6 weeks. The patient received medication through the pain clinic. 9. Risk assessment tool, low for opioid use. 10. Functional assessment tool. 11. Recreational drug use. The patient denies use of recreational drugs. 12. Tobacco: The patient continues to smoke and has smoked for about 45 years. We have discussed smoking cessation with the patient. PHYSICAL EXAMINATION: GENERAL: The patient is a well-developed, well-nourished male who appears his stated age. He is alert and oriented x 3. His affect is appropriate[place] [address] PAIN MANAGEMENT CONSULTATION Name: EDMUND SHOEMAKER Room: [facility] Martinez#: [id number] Admission: 09/27/18 Attend Phys: Toby Castellano MD Discharge: Date of : 51 Report #: [id number] HEENT: Normocephalic, atraumatic. Extraocular eye muscles intact. Sclerae nonicteric. Mucous membranes are moist. NECK: Without adenopathy or JVD. HEART: Regular rate. S1, S2. ABDOMEN: Nontender. Bowel sounds present. MUSCULOSKELETAL: Upper extremity muscle strength judged to be 5/5 for the major muscle groups in the upper extremity. The patient without significant scoliosis, kyphosis or lordosis. The patient has some well-healed scars in the lower portion of his back. He has pain that is radiating down in the L5-S1 dermatomal distribution on the left. Notes some numbness, tingling as well as weakness in this area. IMPRESSION: 1. Lumbar radiculopathy with L5-S1 on the left. 2. Spinal cord stimulator in place, status post 3 surgeries. 3. Hypertension. 4. Chronic pain, treated with opioid therapy. 5. Prostatic hypertrophy. 6. History of episodes of bronchitis - this patient smokes. RECOMMENDATIONS: We discussed treatment options with the patient. At this juncture, the patient feels that his pain has increased over the last few days. He has returned to the pain clinic with a desire to undergo an epidural steroid injection. He has noted an improvement in his pain significantly after each procedure. At this point, he would like to have his medications renewed as well. He has taken the medication as prescribed. Rates his pain as a 2/10 with this juncture. Pain increases with activities. We will proceed with an epidural steroid injection. Risks and benefits of the procedure were discussed. They include but are not limited to infection, worsening of pain, increased muscle discomfort, nerve damage, bleeding. The patient elects to proceed. PROCEDURE NOTE: The patient has been assisted in getting on the examination table. His back was sterilely prepped with a Betadine solution. A 0.25% bupivacaine was infiltrated in the left L5-S1 area. A 25-gauge needle was used to numb the area using 0.25% bupivacaine. A 20-gauge spinal needle was then advanced into the area of the L5-S1 nerve using fluoroscopy with anterior as well as lateral imaging. After appropriate placement, aspiration was negative. Total of 80 mg Depo-Medrol, 40 mg triamcinolone was injected into the area. The patient states that he was not experiencing pain or discomfort down into his nerve root during the procedure. He did note some pressure, but stated that this was not nerve pain. He remained in the pain clinic for an appropriate amount of time. A script for his medication of Oxycodone 5/325 1 p.o. t.i.d., a total of 90 tablets have been renewed. The patient will call us [place] [address] PAIN MANAGEMENT CONSULTATION Name: NAVIDEDMUND NORIEGA Room: [facility]#: [id number] Admission: 09/27/18 Attend Phys: Toby Castellano MD Discharge: Date of : 53 Report #: [id number] We would like to thank you for letting us participate in his care. We hope he continues to improve. <ELECTRONICALLY SIGNED> By: Toby Castellano MD 10/26/18 1427 1320 [id number] Castellano MD /[facility]
== END | disposition home or self-care (01) ==
LOC: M.PC 05:11
DX: M54.16 Radiculopathy, lumbar region (principal); G89.29 Other chronic pain; I10 Essential (primary) hypertension; N40.0 Benign prostatic hyperplasia without lower urinary tract symptoms; F17.210 Nicotine dependence, cigarettes, uncomplicated; Z88.8 Allergy status to other drugs, medicaments and biological substances; Z98.890 Other specified postprocedural states; Z79.899 Other long term (current) drug therapy; Z79.891 Long term (current) use of opiate analgesic; Z86.73 Personal history of transient ischemic attack (TIA), and cerebral infarction without residual deficits

== ENCOUNTER → 2018-11-08 | Outpatient (CLI) | payer MEDICARE, OTHER ==
--- NOTE | ~2018-11-08 | PAINCON ---
[address] [address] PAIN MANAGEMENT CONSULTATION Name: EDMUND SHOEMAKER LEANN Room: [facility] Martinez#: [id number] Admission: 11/08/18 Attend Phys: Toby Castellano MD Discharge: Date of : 51 Report #: [id number] THIS REPORT FOR: //name// CC: Toby Child DATE OF SERVICE: 11/08/2018 CHIEF COMPLAINT: "Here for medication management." FOLLOWUP HISTORY: The patient is a 63-year-old gentleman who has been followed in the pain clinic. He has had a number of back surgeries. He has undergone epidural steroid injections and gleaned benefits from these. He feels that the last injection was quite successful. He has returned today with a hope of renewing his medications. He still has low back pain involving his left hip and left leg. He is taking the Percocet medication 3 times daily. He feels that this medication enables him to stay active. He continues to work. He is quite active in his job. He feels that the medication is helpful and decreasing pain when he is active walking, sitting, standing and has had no complications with its use. ALLERGIES: MORPHINE. CURRENT MEDICATIONS: Atenolol 100 mg at bedtime for history of SVT, Mucinex 60 mg, Advil 200 mg, multivitamin, and oxycodone 5 mg 1 p.o. t.i.d. PAIN CLINIC ASSESSMENT/PQRS: 1. The patient has left hip pain that radiates down into the L5-S1 dermatomal distribution. He is not being treated for rheumatoid arthritis. 2. Height 5 feet 7 inches, weight 137 pounds, BMI is 21.5. 3. VITAL SIGNS: Blood pressure 151/65, heart rate 23, respiratory rate 16, room air saturation is 96%, and temperature 98.0. 4. Pain intensity 05/05. 5. Fall history: The patient has not fallen in the last 3 months. 6. Blood thinner. The patient is not on a blood thinning medication. 7. Hypertension. The patient has not been treated for hypertension. 8. Opioids greater than 6 weeks. The patient is receiving medications from one source, the pain clinic. 9. Risk assessment tool, low for opioid use. 10. Functional assessment tool. 11. Recreational drug use. The patient denies use of recreational drugs. 12. Tobacco: The patient continues to smoke and has smoked for the last 45 years. Discussion of smoking has been undertaken. PHYSICAL EXAMINATION: GENERAL: The patient is a well-developed, well-[place] [address] PAIN MANAGEMENT CONSULTATION Name: EDMUND SHOEMAKER [id number] Admission: 11/08/18 Attend Phys: Toby Castellano MD Discharge: Date of : 51 Report #: [id number] his stated age. He is alert and oriented x 3. His affect is appropriate. Speech is fluent. HEENT: Normocephalic, atraumatic. Extraocular eye muscles are intact. Sclerae nonicteric. Mucous membranes are moist. HEART: Regular rate. ABDOMEN: Nontender. Bowel sounds are present. EXTREMITIES: Upper extremity muscle strength is judged to be 5/5 for the major muscle groups in the upper extremity. The patient without significant scoliosis or lordosis. He has a well-healed scar in the lower portion of his back. He has pain that radiates down the L5-S1 dermatomal distribution on the left side, less painful with than at the last visit. IMPRESSION: 1. History of lumbar radiculopathy with L5-S1 involvement of the left. 2. Spinal cord stimulator in place status post 3 back surgeries. 3. Hypertension. 4. Chronic pain treated with opioid therapy. 5. Prostatic hypertrophy. 6. History of episodes of bronchitis. The patient does smoke. RECOMMENDATIONS: We discussed treatment options with the patient. At this juncture, we will continue with his complex medical management using opioid medication to help control his pain. He feels that the medication is helpful overall. He is having no complications. He continues to be active. He keeps his medications in a guarded area. He feels that the last epidural injection was helpful. At this point, we will just renew his oxycodone. He will continue with 5 mg 1 p.o. daily 3 times daily. He will call us if he has any concerns. We would like to thank you for letting us participate in his care. We will continue with the patient's complex medical management using opioid medication over the next month. By: 1030 [id number]. Jordy Castellano MD /[facility]
== END ==
LOC: M.PC 05:09
DX: Z76.0 Encounter for issue of repeat prescription (principal); M54.17 Radiculopathy, lumbosacral region; I10 Essential (primary) hypertension; G89.29 Other chronic pain; F17.200 Nicotine dependence, unspecified, uncomplicated; Z88.5 Allergy status to narcotic agent; Z79.899 Other long term (current) drug therapy; Z79.891 Long term (current) use of opiate analgesic

== ENCOUNTER 2018-11-16 20:14 | Emergency (ER) | payer MEDICARE, OTHER ==
[~2018-11-16] VITALS: Ht 170.2 cm; Wt 63.5 kg
[2018-11-16] MEDS ORDERED: KEFLEX500 M1 PO (22:13)
[2018-11-16 22:23] VITALS: BP 144/73
== END 2018-11-16 22:24 | disposition home or self-care (01) ==
LOC: M.ERS 20:14
DX: S81.811A Laceration without foreign body, right lower leg, initial encounter (principal); F17.210 Nicotine dependence, cigarettes, uncomplicated; F10.10 Alcohol abuse, uncomplicated; Z90.89 Acquired absence of other organs; Z79.899 Other long term (current) drug therapy; W20.8XXA Other cause of strike by thrown, projected or falling object, initial encounter; Y93.89 Activity, other specified; Y92.89 Other specified places as the place of occurrence of the external cause; Y99.8 Other external cause status

== ENCOUNTER → 2018-12-06 | Outpatient (CLI) | payer MEDICARE, OTHER ==
[~2018-12-06] MED LIST changes: +KEFLEX500 M1 PO; +STOOL SOFTENER250 MG PO
--- NOTE | ~2018-12-06 | PAINCON ---
[address] [address] PAIN MANAGEMENT CONSULTATION Name: VÍCTORDICKSONRUBYEDMUND NORIEGA Room: [facility] Juan#: [id number] Admission: 12/06/18 Attend Phys: Toby Castellano MD Discharge: Date of : 53 Report #: [id number] THIS REPORT FOR: //name// CC: Toby Child DO DATE OF SERVICE: 12/06/2018 CHIEF COMPLAINT: "Medicines are working well and I am here for renewal." HISTORY: The patient is a 63-year-old gentleman who has been followed in the pain clinic. As you recall, he has a history of chronic back pain. He has had back surgeries. Has left hip pain as well as some left leg discomfort. He has returned today for renewal of his medications. He has had no new pain changes. Low back continues to have some discomfort. The medications help to keep the pain bearable. He has a spinal cord stimulator in place. Rates his pain as 2/10 at this point. Feels that the oxycodone medication is helpful. He remains employed and feels that he is about 80% improved with use of medications as well as a spinal cord stimulator. ALLERGIES: MORPHINE. CURRENT MEDICATIONS: Atenolol 100 mg at bedtime for SVT, Mucinex 60 mg, Advil 200 mg, multivitamin, and oxycodone 5/325 one p.o. t.i.d. PAIN CLINIC ASSESSMENT/PQRS: 1. The patient has some left leg pain that radiates down into the L5-S1 dermatomal distribution. He is not being treated for rheumatoid arthritis. 2. Height 5 feet 7 inches, weight is 135 pounds, BMI is 21.0. 3. Vital signs: Blood pressure 145/85, heart rate 68, respiratory rate 16, room air saturation 95%, temperature 98.1. 4. Pain intensity /10. 5. Fall history: The patient has not fallen in the last 3 months. 6. Blood thinner. The patient is not on a blood thinning medication. 7. Hypertension. The patient is not being treated for hypertension. 8. Opioids greater than 6 weeks. The patient received medication from one source the pain clinic. 9. Risk assessment tool, low for opioid use. 10. Functional assessment tool. 11. Recreational drug use. The patient denies use of recreational drugs. 12. Tobacco: The patient continues to smoke and has smoked for last 45 years. Smoking cessation has been discussed. PHYSICAL EXAMINATION: GENERAL: The patient is a well-developed, well-[place] [address] PAIN MANAGEMENT CONSULTATION Name: EDMUND SHOEMAKER Room: [facility] Juan#: [id number] Admission: 12/06/18 Attend Phys: Toby Castellano MD Discharge: Date of : 53 Report #: [id number] his stated age. He is alert and oriented x 3. His affect is appropriate. Speech is fluent. HEENT: Normocephalic, atraumatic. Extraocular eye muscles intact. Sclerae nonicteric. Mucous membranes are moist. NECK: Without adenopathy or JVD. HEART: Regular rate. ABDOMEN: Nontender. Bowel sounds present. EXTREMITIES: Upper extremity muscle strength judged to be 5/5 for the major muscle groups in the upper extremity. The patient is without significant scoliosis, kyphosis, or lordosis. Has well-healed scar in the lower portion of his back. Has pain that radiates down the L5-S1 dermatomal distribution on the left side. IMPRESSION: 1. History of lumbar radiculopathy at the L5-S1 involvement on the left side. 2. Spinal cord stimulator in place, status post 3 back surgeries. 3. Hypertension. 4. Chronic pain treated with opioid therapy. 5. Prostatic hypertrophy. 6. History of bronchitis. RECOMMENDATIONS: We discussed treatment options with the patient. At this juncture, we will continue with his medication. He feels that the medications are helpful. Medication in conjunction with his spinal cord stimulator provide him with about 80% improvement in pain. He is aware that opioid medications can be problematic for some people. Some people can become addicted, as a result of their use. He does not feel that he is addicted to the medication. He does not show any signs of addictive behavior. We have discussed the problems with opioids at alf, they could become less effective as time goes by secondary to development of tolerance. Overall, he feels that things are going reasonably well. We will continue to help control his pain with the complex medical management, which includes oxycodone. We would like to thank you for letting us participate in his care. We hope he continues to improve. By: [id number] [id number]. Jordy Castellano MD /[facility]
== END ==
LOC: M.PC 05:10
DX: M54.17 Radiculopathy, lumbosacral region (principal); N40.0 Benign prostatic hyperplasia without lower urinary tract symptoms; Z79.891 Long term (current) use of opiate analgesic; I10 Essential (primary) hypertension

== ENCOUNTER → 2019-01-03 | Outpatient (CLI) | payer MEDICARE, OTHER ==
[~2019-01-03] MED LIST changes: +OXYCODONE-ACET1 EACH PO
--- NOTE | ~2019-01-03 | PAINCON ---
[facility] [address] [place] [address] PAIN MANAGEMENT CONSULTATION Name: EDMUND SHOEMAKER LEANN Room: [facility] Juan#: [id number] Admission: 01/03/19 Attend Phys: Toby Castellano MD Discharge: Date of : 53 Report #: [id number] THIS REPORT FOR: //name// CC: Toby Child DATE OF SERVICE: 01/03/2019 CHIEF COMPLAINT: Here for medication renewal. HISTORY: The patient is a 63-year-old gentleman who has been followed in the pain clinic because of chronic pain. It involves his low back, left hip, and left leg. He has had a number of back surgeries. Does have a spinal cord stimulator in place. With the use of Percocet and the spinal cord stimulator, he notes his pain can be controlled. He notes worsening of pain with walking, sitting and standing. Notes some increased pain and discomfort after prolonged sitting. He has returned today with a desire to have his medications renewed. He has had no complications from the past use of his medications. He has had no problems and finds that the spinal cord stimulator continues to be beneficial. ALLERGIES: MORPHINE. CURRENT MEDICATIONS: Atenolol 100 mg at bedtime for SVT, Mucinex 60 mg, Advil 200 mg, multivitamins, oxycodone 5/325 1 p.o. t.i.d. PAIN CLINIC ASSESSMENT AND PQRS: 1. The patient has some pain in the left leg that continues radiating down the L5-S1 dermatomal distribution. He is not being treated for rheumatoid arthritis. 2. Height 5 feet 7 inches, weight 135 pounds, BMI is 21.2. 3. Vital Signs: Blood pressure 130/79, heart rate 64, respiratory rate 16, room air saturation 95%, temperature 98.1. 4. Pain intensity, 2/10. 5. Fall history. The patient has not fallen in the last 3 months. 6. Blood thinner. The patient is not on a blood thinning medication. 7. Hypertension. The patient is not being treated for hypertension. 8. Opioids greater than 6 weeks. The patient receives medications from one source, the pain clinic. 9. Risk assessment tool, low for opioid use. 10. Functional assessment tool. 11. Recreational drugs. The patient denies use of recreational drugs. 12. Tobacco: The patient continues to smoke cigarettes, has smoked for the last 45 years. Smoking cessation has been discussed. PHYSICAL EXAMINATION: GENERAL: The patient is a well-developed, well-[place] [address] PAIN MANAGEMENT CONSULTATION Name: EDMUND SHOEMAKER Room: [facility]#: [id number] Admission: 01/03/19 Attend Phys: Toby Castellano MD Discharge: Date of : 53 Report #: [id number] his stated age. He is alert and oriented x 3. His affect is appropriate. Speech is fluent. HEENT: Normocephalic, atraumatic. Extraocular eye muscles intact. Sclerae nonicteric. Mucous membranes are moist. NECK: Without adenopathy or JVD. HEART: Regular rate. ABDOMEN: Nontender. Bowel sounds present. EXTREMITIES: Upper extremity muscle strength judged to be 5/5 for the major muscle groups. Lower extremity muscle strength judged to be 5-/5 with pain that radiates down the L5-S1 dermatomal distribution. It involves his left hip and left leg. IMPRESSION: 1. History of lumbar radiculopathy in the L5-S1 dermatomal distribution on the left. 2. History of spinal cord stimulator in place, status post 3 back surgeries. 3. Hypertension. 4. Chronic pain, treated with opioid therapy. 5. Prostatic hypertrophy. 6. History of bronchitis. RECOMMENDATIONS: We discussed treatment options with the patient. At this juncture, we will continue with his medications. The patient has been taking his medication as prescribed. He has had no problems. At this juncture, we will provide 2 months pain relief with oxycodone. The patient is aware that opioid medications can be helpful, but for some patients can be problematic and that they can develop addiction. The patient does not feel he is addicted to his medication. Keeps it in a guarded area. He is aware that 70,000 people last year as a result of overdosing of the medications. He will call us if he has any concerns. A script for oxycodone 5/325 1 p.o. t.i.d. for the month of December as well as January have been provided. We will continue with the patient's complex medical management using opioid medications to help curtail his pain. We would like to thank you for letting us participate in his care. We hope he continues to improve. By: 1456 [id number]. Jordy Castellano MD /[facility]
== END ==
LOC: M.PC 04:51
DX: M54.16 Radiculopathy, lumbar region (principal); I10 Essential (primary) hypertension; G89.29 Other chronic pain; N40.0 Benign prostatic hyperplasia without lower urinary tract symptoms; Z88.8 Allergy status to other drugs, medicaments and biological substances; Z79.899 Other long term (current) drug therapy

== ENCOUNTER → 2019-02-28 | Outpatient (CLI) | payer MEDICARE, OTHER ==
[~2019-02-28] MED LIST changes: +MOBIC15 MG PO
--- NOTE | 2019-03-06 13:25 | PAINCON ---
[address] [address] PAIN MANAGEMENT CONSULTATION Name: EDMUND SHOEMAKER Room: [facility] Martinez#: [id number] Admission: 02/28/19 Attend Phys: Toby Castellano MD Discharge: Date of : 53 Report #: [id number] THIS REPORT FOR: //name// CC: Toby Child DO DATE OF SERVICE: 02/28/2019 CHIEF COMPLAINT: Low back pain with pain in the lumbar area. HISTORY: The patient is a 63-year-old gentleman who has been followed in the pain clinic because of lumbar radiculopathy. He has undergone epidural steroid injection. Has pain in his low back area. He has had surgeries in the past in the lumbar area. Notes some pain in his left hip as well as his left leg. He has found that if he takes 5 mg of hydrocodone at 4:30 a.m. when he gets up to use the bathroom, by 6 a.m. when he arises to shower, he has less pain and discomfort. He feels that his medications are helpful. He notes by evening time, the efficacy of his pain medications has worn down. He takes about 4 tablets daily. Rates his pain as a 2/10 at this point. Feels that the pain medications and treatment have been about 80%-90% helpful. Does continue to use his spinal cord stimulator. He has returned today for renewal of his medications. ALLERGIES: MORPHINE. CURRENT MEDICATIONS: Atenolol 100 mg at bedtime for SVT, Mucinex 600 mg, Advil 200 mg, multivitamins, oxycodone 5/325 one p.o. t.i.d. PAIN CLINIC ASSESSMENT/PQRS: 1. The patient has some pain in the left leg and continues to have pain that radiates down to his back in the L5-S1 dermatomal distribution on the left. He is not being treated for rheumatoid arthritis. 2. Height 5 feet 7 inches, weight 136 pounds, BMI is 21.3. 3. Vital signs: Blood pressure 146/77, heart rate 78, respiratory rate 16, room air saturation is 95%, temperature 98.7. 4. Pain intensity 06/05. 5. Fall history: The patient has not fallen since we saw him last. 6. Blood thinner. The patient is not on a blood thinning medication. 7. Hypertension. The patient is not being treated for hypertension. 8. Opioids greater than 6 weeks. The patient receives medication from one source pain clinic. 9. Risk assessment tool, low for opioid use. 10. Functional assessment tool. 11. Recreational drug use. The patient denies use of recreational drugs. 12. Tobacco: The patient continues to smoke, has smoked for last [address] [place] [address] PAIN MANAGEMENT CONSULTATION Name: EDMUND SHOEMAKER Room: [facility]#: [id number] Admission: 02/28/19 Attend Phys: Toby Castellano MD Discharge: Date of : 51 Report #: [id number] Discussed smoking cessation in the past. PHYSICAL EXAMINATION: GENERAL: The patient is a well-developed, well-nourished white male. Appears his stated age. He is alert and oriented x 3. His affect is appropriate. Speech is fluent. HEENT: Normocephalic, atraumatic. Extraocular eye muscles intact. Sclerae nonicteric. Mucous membranes moist. NECK: Without adenopathy or JVD. ABDOMEN: Nontender. Bowel sounds present. EXTREMITIES: Upper extremity muscle strength judged to be 5/5 for the major muscle groups in the upper extremity. Lower extremity muscle strength judged to be 5-/5 in the left leg with pain that radiates down the L5-S1 dermatomal distribution involving his left hip and left leg. IMPRESSION: 1. History of lumbar radiculopathy at the L5-S1 dermatomal distribution on the left. 2. History of spinal cord stimulator placement status post 3 back surgeries. 3. Hypertension. 4. Chronic pain treated with opioid therapy. 5. Prostatic hypertrophy. 6. History of bronchitis. RECOMMENDATION: We discussed treatment options with the patient. We will continue with his medications. He is not taking a nonsteroidal anti-inflammatory medication. He does not have cardiac problems. He does not have any problem with his GI tract. We will try Mobic 15 mg 1 p.o. daily. We discussed the risks and benefits of the use of nonsteroidals with the patient. They could include cardiac problems as well as GI problems. If he has either, he will stop taking this medication. He will continue with oxycodone 5 mg 1 p.o. t.i.d. A script for this medication has been renewed. Possible complications have been discussed and the patient feels that it is reasonable to try the Mobic medication. We would like to thank you for letting us participate in his care. We hope he continues to improve. We will continue with the use of an opioid medication to help control his pain. He is aware that opioid medications can become less effective over time secondary to development of tolerance. Some patients can develop dependence. The patient is showing no signs of addiction. <ELECTRONICALLY SIGNED> By: Toby Castellano MD 03/06/19 1325 1014 1309N. Jordy Castellano MD /[facility]
== END ==
LOC: M.PC 05:06
DX: M54.17 Radiculopathy, lumbosacral region (principal); I10 Essential (primary) hypertension; N40.0 Benign prostatic hyperplasia without lower urinary tract symptoms; J40 Bronchitis, not specified as acute or chronic; Z79.891 Long term (current) use of opiate analgesic

== ENCOUNTER → 2019-04-25 | Outpatient (CLI) | payer MEDICARE, OTHER ==
--- NOTE | ~2019-04-25 | PAINCON ---
[address] [address] PAIN MANAGEMENT CONSULTATION Name: EDMUND SHOEMAKER Room: [facility] SANDRA Martinez#: [id number] Admission: 04/25/19 Attend Phys: Toby Castellano MD Discharge: Date of : 51 Report #: [id number] THIS REPORT FOR: //name// CC: Toby Child DO DATE OF SERVICE: 04/25/2019 CHIEF COMPLAINT: Low back pain, left hip pain and left leg pain, which has been problematic for years. HISTORY: The patient is a 63-year-old gentleman, who has been followed in the Pain Clinic because of lumbar radiculopathy. As you may recall, he has had pain, which is problematic in the low back area. He has had lumbar surgeries in the past. He also has pain in his left hip and left leg. He finds that use of opioid medications at a low dose is helpful. He finds that Percocet continues to be helpful. He is using meloxicam. He is not having any problems with his GI tract. Does occasionally have a flareup of his pain. Today, things are not too bad. He has returned for renewal of his medication. He feels that his pain is about 80% improved with his current regimen. Rates his pain as a 1/10. He continues to be active. He does have a spinal cord stimulator, which is beneficial as well. ALLERGIES: MORPHINE. CURRENT MEDICATIONS: Atenolol 100 mg at bedtime for SVT, Mucinex 600 mg, Advil 200 mg, multivitamins, oxycodone 5/325 one p.o. t.i.d. PAIN CLINIC ASSESSMENT/PQRS: 1. The patient does have some pain in his left leg, which continues. Pain radiates down in the L5-S1 dermatomal distribution on the left. He is not being treated for rheumatoid arthritis. 2. Height 5 feet 7 inches, weight 138 pounds, BMI is 22. 3. Vital signs: Blood pressure 139/90, heart rate 69, respiratory rate 16, room air saturation 95%, temperature is 97.9. 4. Pain intensity: 05/05. 5. Fall history: The patient has not fallen in the last 3 months. 6. Blood thinner. The patient is not on a blood thinning medication. 7. Hypertension. The patient is not being treated for hypertension. 8. Opioids greater than 6 weeks: The patient received medication from one source, pain clinic. 9. Risk assessment tool: Low for opioid use. 10. Functional assessment tool. 11. Recreational drug use: The patient denies. 12. Tobacco: The patient continues to smoke. He has smoked for the last [address] [place] [address] PAIN MANAGEMENT CONSULTATION Name: EDMUND SHOEMAKER Room: [facility]#: [id number] Admission: 04/25/19 Attend Phys: Toby Castellano MD Discharge: Date of : 51 Report #: [id number] years. We have discussed smoking cessation. 13. Alcohol. The patient denies frequent use of alcoholic beverages. PHYSICAL EXAMINATION: GENERAL: The patient is a well-developed, well-nourished white male. Appears his stated age. He is alert and oriented x 3. His affect is appropriate. Speech is fluent. HEENT: Normocephalic, atraumatic. Extraocular eye muscles are intact. Sclerae are nonicteric. Mucous membranes are moist. NECK: Without adenopathy or JVD. ABDOMEN: Nontender. Bowel sounds present. EXTREMITIES: Upper extremity muscle strength judged to be 5/5 for the major muscle groups in the upper extremities. Lower extremity muscle strength judged to be 5-/5 on the left side and 5/5 on the right. Does have some discomfort in the left and right hip area. IMPRESSION: 1. History of lumbar radiculopathy at the L5-S1 dermatomal distribution on the left. 2. History of spinal cord stimulator placement with benefit. 3. History of 3 back surgeries. 4. Hypertension. 5. Chronic pain, treated with opioid therapy. 6. Prostatic hypertrophy. 7. History of bronchitis. RECOMMENDATIONS: We discussed treatment options with the patient. Risks and benefits of opioid medications are reviewed. The patient is aware that opioid medications can be helpful. They can be problematic in certain patients. He has taken the medication as prescribed. He is not having any signs of addiction. He has taken the medication as prescribed. Keeps it locked up in a guarded area. Feels that these medications are helpful. He does continue to work part-time. He is able to perform his activities and his part-time job with a clear sensorium. We will continue with his medications. He will monitor his GI tract. He continues to use meloxicam, a nonsteroidal anti-inflammatory medication. He finds this medication is helpful as well. We would like to thank you for letting us participate in his care. We hope he continues to improve. By: [id number]. Jordy Castellano MD /ceci
== END ==
LOC: M.PC 04:27
DX: M54.16 Radiculopathy, lumbar region (principal); I10 Essential (primary) hypertension; G89.29 Other chronic pain; N40.0 Benign prostatic hyperplasia without lower urinary tract symptoms

== ENCOUNTER → 2019-05-16 | Outpatient (CLI) | payer MEDICARE, OTHER ==
[~2019-05-16] MED LIST changes: +NEURONTIN 300300 M1 PO; +OXYCONTIN10 M1 PO
--- NOTE | ~2019-05-16 | PAINCON ---
[address] [address] PAIN MANAGEMENT CONSULTATION Name: EDMUND SHOEMAKER LEANN [id number] Admission: 05/16/19 Attend Phys: Toby Castellano MD Discharge: Date of : 53 Report #: [id number] THIS REPORT FOR: //name// CC: Toby Child DO DATE OF SERVICE: 05/16/2019 CHIEF COMPLAINT: Worsening of back pain. Pain has been above the since my surgery. HISTORY: The patient is a 63-year-old gentleman who has been followed in the pain clinic because of chronic pain associated with his back. He has undergone a number of back surgeries. He noted that his pain started a number of days ago since that time and it has been very severe. He states that he is trying to stay by himself because of the severity of the pain. He is short-tempered because of the discomfort. ALLERGIES: MORPHINE. CURRENT MEDICATIONS: Atenolol 100 mg at bedtime for SVT, Mucinex 600 mg, Advil 200 mg, multivitamins, and oxycodone 5/325 one p.o. t.i.d. PAIN CLINIC ASSESSMENT/PQRS: 1. The patient has pain and discomfort that is radiating down to his left leg, which is quite problematic. He is not being treated for rheumatoid arthritis. 2. Height 5 feet 7 inches, weight 139 pounds, BMI is 22. 3. Vital signs: Blood pressure 139/95, heart rate 68, respiratory rate 16, room air saturation is 95, temperature 97.9. 4. Pain intensity is 10/10. 5. Fall history: The patient has not fallen in the last 3 months. 6. Blood thinner. The patient is not on a blood thinning medication. 7. Hypertension. The patient is not being treated for hypertension. 8. Opioids greater than 6 weeks. The patient received medication from one source, pain clinic. 9. Functional assessment tool has been reviewed. 10. Recreational drug use: The patient denies. 11. Tobacco: The patient continues to smoke tobacco. Has a 45-year smoking history. 12. Alcohol. The patient denies frequent use of alcoholic beverages. PHYSICAL EXAMINATION: GENERAL: The patient is a well-developed, well-nourished white male. Appears his stated age. He is alert and oriented x 3. His affect is appropriate. [place] [address] PAIN MANAGEMENT CONSULTATION Name: EDMUND SHOEMAKER Room: [facility]#: [id number] Admission: 05/16/19 Attend Phys: Toby Castellano MD Discharge: Date of : 53 Report #: [id number] HEENT: Normocephalic, atraumatic. Extraocular eye muscles intact. Sclerae nonicteric. Mucous membranes are moist. NECK: Without adenopathy or JVD. ABDOMEN: Nontender. Bowel sounds present. EXTREMITIES: Upper extremity muscle strength judged to be 5/5 for the major muscle groups in the upper extremity. The patient has a well-healed scar in the lower portion of his back. He is without significant scoliosis, kyphosis, or lordosis. Has pain that is radiating down into the low back area on the left side. IMPRESSION: 1. History of lumbar radiculopathy with L5-S1 dermatomal distribution of pain with positive straight leg raise. 2. History of spinal cord stimulator placement, which provides some benefit. 3. History of back surgeries x 3. 4. Hypertension. 5. Chronic pain treated with opioid medications to help control the pain. 6. Prostatic hypertrophy. 7. History of bronchitis. RECOMMENDATIONS: We discussed treatment options with the patient. Risks and benefits of an epidural steroid injection were again discussed. The possible complications of the procedure were reviewed. Questions were sought and answered. The patient elects to proceed and was taken to the procedure area. He was then assisted in getting on examination table. Anterior, posterior view using fluoroscopy was undertaken. The patient's back was sterilely prepped with a Betadine solution and allowed to dry. A 0.25% bupivacaine was infiltrated in a transforaminal approach. After the left paraspinous area was anesthetized. A 22-gauge spinal needle was then advanced into the appropriate area using fluoroscopy. After appropriate placement was noted. Aspiration was negative. There was no pain or discomfort during the injection. A total of 80 mg Depo-Medrol, 40 mg triamcinolone was injected. The patient was then taken to the procedure area where he remained for an appropriate amount of time. The patient has had pain, which is quite severe. At this juncture, we will provide him with OxyContin 10 mg 1 p.o. b.i.d. to take to help quell the pain. He will also continue with gabapentin 300 mg 1 p.o. t.i.d. We would like to thank you for letting us participate in his care. We hope he continues to improve. By: [id number]. Jordy Castellano MD /PMT
== END | disposition home or self-care (01) ==
LOC: M.PC 08:40
DX: M54.16 Radiculopathy, lumbar region (principal); G89.29 Other chronic pain; I10 Essential (primary) hypertension; N40.0 Benign prostatic hyperplasia without lower urinary tract symptoms; F17.210 Nicotine dependence, cigarettes, uncomplicated; Z98.890 Other specified postprocedural states; Z79.899 Other long term (current) drug therapy; Z88.8 Allergy status to other drugs, medicaments and biological substances

== ENCOUNTER → 2019-06-22 | Outpatient (CLI) | payer MEDICARE, OTHER ==
[~2019-06-22] MED LIST changes: +METHADONE HCL5 MG PO; +NEURONTIN300 MG PO
--- NOTE | 2019-07-11 08:57 | PAINCON ---
[address] [address] PAIN MANAGEMENT CONSULTATION Name: EDMUND SHOEMAKER Room: [facility] SANDRA Martinez#: [id number] Admission: 06/22/19 Attend Phys: Toby Castellano MD Discharge: Date of : 51 Report #: [id number] THIS REPORT FOR: //name// cc: Floyd Child Vincent R. DO THIS REPORT FOR: //name// CC: Toby Child DO DATE OF SERVICE: 06/22/2019 CHIEF COMPLAINT: Low back pain. "I think something has changed in my back because the pain is worse." HISTORY OF PRESENT ILLNESS: The patient is a 63-year-old gentleman, who has been followed in the Pain Clinic because of chronic pain in his back. He has undergone epidural steroid injections in the past. These generally have been helpful. He has noticed that over the last few days, his pain has become significantly more problematic. It is not relieved with his current medical regimen. He is experiencing an increase in pain when he is sitting up. He is experiencing sharp, stabbing pain. His spinal cord stimulator is not helping as much as it had in the past. He notes that walking, sitting, and standing can be quite problematic. ALLERGIES: MORPHINE. CURRENT MEDICATIONS: Atenolol 100 mg at bedtime for supraventricular tachycardia, Mucinex 600 mg, Advil 200 mg, multivitamins, and oxycodone 5/325 one p.o. t.i.d. PAIN CLINIC ASSESSMENT/PQRS: 1. The patient has pain and discomfort that is radiating down into his left leg, which continues to be quite problematic. He is not being treated for rheumatoid arthritis. 2. Height 5 feet 7 inches, weight 138 pounds, body mass index is 21. 3. Vital signs: Blood pressure 153/86, heart rate 65, respiratory rate 16, room air saturation is 97%, and temperature is 98.1. 4. Pain intensity: 5/10. 5. Fall history: The patient has not fallen in the last 3 months. 6. Blood thinner: The patient is not on a blood thinning medication. 7. Hypertension: The patient is not being treated for hypertension. 8. Opioids greater than 6 weeks: The patient receives medication from one source, Pain Clinic. 9. Functional assessment tool: [place] [address] PAIN MANAGEMENT CONSULTATION Name: EDMUND SHOEMAKER Room: [facility]#: [id number] Admission: 06/22/19 Attend Phys: Toby Castellano MD Discharge: Date of : 51 Report #: [id number] 10. Recreational drug use: The patient denies. 11. Tobacco: The patient continues to smoke and has a 45-year smoking history. 12. Alcohol: The patient denies frequent use of alcoholic beverages. PHYSICAL EXAMINATION: GENERAL: The patient is a well-developed, well-nourished white male. He appears his stated age. He is alert and oriented x3. His affect is appropriate. Speech is fluent. HEENT: Normocephalic, atraumatic. Extraocular eye muscles are intact. Sclerae are anicteric. Mucous membranes are moist. NECK: Without adenopathy or JVD. CHEST: Clear. ABDOMEN: Nontender. Bowel sounds present. EXTREMITIES: Upper extremity muscle strength judged to be 5/5 for the major muscle groups in the upper extremity. The patient has a well-healed scar in the lower portion of his back and is without significant scoliosis, kyphosis, or lordosis. He has pain that is radiating down the lower portion of his back in the L5-S1 dermatomal distribution. IMPRESSION: 1. History of lumbar radiculopathy at L5-S1 dermatomal distribution; positive straight leg raise. 2. History of spinal cord stimulator placement, which continues to provide benefit. 3. Back surgeries x3. 4. Hypertension. 5. Chronic back pain, treated with opioid medications. 6. Prostatic hypertrophy. 7. History of bronchitis. RECOMMENDATIONS: We discussed options with the patient. We will have the patient continue with oxycodone. He will continue with 5 mg 1 p.o. t.i.d. He will continue with the hydrocodone b.i.d. The patient will also continue with Neurontin 300 mg 1 p.o. t.i.d. A script for tizanidine 4 mg 1 p.o. t.i.d. has been provided as well. The patient will try methadone. Hopefully, methadone 5 mg 1 p.o. t.i.d. will provide some increased pain benefit. We will also have the patient get a CT of his back. He has had 3 back surgeries. He feels that there is a change in his back. We will have a CT performed to evaluate the change and back pain, which he is experiencing. We would like to thank you for letting us participate in his care. We hope he continues to improve. <ELECTRONICALLY SIGNED> By: Toby Castellano MD 07/11/19 0857 [id number]. Jordy Castellano MD /nt
== END ==
LOC: M.PC 02:13
DX: M54.5 Low back pain (principal); G89.29 Other chronic pain; N40.0 Benign prostatic hyperplasia without lower urinary tract symptoms; I10 Essential (primary) hypertension; Z79.891 Long term (current) use of opiate analgesic

== ENCOUNTER → 2019-06-23 | Outpatient (CLI) | payer MEDICARE, OTHER | LOC: M.CT 09:07 | DX: M48.061 Spinal stenosis, lumbar region without neurogenic claudication (principal); M41.86 Other forms of scoliosis, lumbar region; Q24.5 Malformation of coronary vessels; M25.78 Osteophyte, vertebrae ==

== ENCOUNTER → 2019-09-12 | Outpatient (CLI) | payer MEDICARE, OTHER ==
[~2019-09-12] MED LIST changes: +PERCOCET 5-3251 EACH PO
--- NOTE | 2019-09-25 09:22 | PAINCON ---
[address] [address] PAIN MANAGEMENT CONSULTATION Name: EDMUND SHOEMAKER Room: [facility] Juan#: [id number] Admission: 09/12/19 Attend Phys: Toby Castellano MD Discharge: Date of : 53 Report #: [id number] THIS REPORT FOR: //name// cc: Floyd Child Vincent R. DO ~ THIS REPORT FOR: //name// CC: Toby Child DATE OF SERVICE: 09/12/2019 PRIMARY CARE PHYSICIAN: Floyd Child DO CHIEF COMPLAINT: "Pain has been better since I have been taking my new medication regimen." HISTORY: The patient is a 64-year-old gentleman who has been followed in the pain clinic because of lumbar radiculopathy. He has noticed an improvement in his pain since we have made changes to his medications. He feels that the methadone medication has been efficacious. He rates his pain as a 1/10. He is stressed somewhat. His and daughter are considered primary in the COVID infection. He alone is watching the grandkids. He states that this is quite stressful. Overall, things are going reasonably well. He would like to have his medications renewed. He is not having any problems with the gabapentin, methadone or oxycodone. ALLERGIES: MORPHINE. CURRENT MEDICATIONS: Gabapentin 300 mg t.i.d., methadone 5 mg 1 p.o. t.i.d., oxycodone 5 mg 1 p.o. t.i.d., docusate 250 mg, multivitamins, Zofran 4 mg, Advil 200 mg b.i.d., meloxicam 15 mg p.r.n., atenolol for supraventricular tachycardia, Mucinex 600 mg. PAIN CLINIC ASSESSMENT AND PQRS: 1. The patient is not being followed by manager security. He has had 3 back surgeries. 2. Height 5 feet 7 inches, weight 133 pounds, BMI is 20.8. 3. Vital Signs: Blood pressure 145/86, heart rate 70, respiratory rate 16, room air saturation 95%, temperature 97.9. 4. Pain intensity 05/05. 5. Fall history: The patient has not fallen in the last 3 months. 6. Blood thinner. The patient is not on a blood thinning medication. 7. Hypertension. The patient is not being treated for hypertension. 8. Opioids greater than 6 weeks. The patient receives medication from one source, [place] [address] PAIN MANAGEMENT CONSULTATION Name: NAVIDEDMUND NORIEGA Room: [facility]#: [id number] Admission: 09/12/19 Attend Phys: Toby Castellano MD Discharge: Date of : 53 Report #: [id number] 9. Risk assessment tool, low for opioid use. 10. Functional assessment tool, reviewed. 11. Tobacco: The patient continues to smoke cigarettes. He has a 45-year smoking history. 12. Alcohol. The patient denies frequent use of alcoholic beverages. Does drink a beer at the end of the day. PHYSICAL EXAMINATION: GENERAL: The patient is a well-developed, well-nourished white male. He is alert and oriented x 3. His affect is appropriate. Speech is fluent. HEENT: Normocephalic, atraumatic. Extraocular eye muscles intact. Sclerae nonicteric. Mucous membranes are moist. NECK: Without adenopathy or JVD. HEART: Regular. ABDOMEN: Nontender. EXTREMITIES: Upper extremity muscle strength 5/5 for the major muscle groups in the upper extremity. The patient has a well-healed scar in the lower portion of his back without significant scoliosis, kyphosis or lordosis. He has some pain and discomfort in the low back area. He has pain that radiates down to the left buttocks involving his left leg. IMPRESSION: 1. History of lumbar radiculopathy with L5-S1 dermatomal distribution. Positive for straight leg raise. 2. History of spinal cord stimulator placement, which continues to provide benefit. 3. Back surgeries x 3. 4. Hypertension. 5. Back pain treated with a complex medical management using opioids. 6. Prostatic hypertrophy. 7. History of bronchitis. RECOMMENDATIONS: We discussed treatment options with the patient. At this juncture, we will continue with his medications. A script for his medication of 5 mg morphine p.o. t.i.d. has been provided. The patient will also continue with gabapentin 300 mg 1 p.o. t.i.d. A script for oxycodone 5 mg 1 p.o. t.i.d. has been provided. The patient feels that his pain medications provide about 50-70% improvement in his pain control. He will keep his medications in a guarded area given that he has young children around. He will call us if he has any concerns. [facility] [address] [place] [address] PAIN MANAGEMENT CONSULTATION Name: EDMUND SHOEMAKER [facility] [id number] Admission: 09/12/19 Attend Phys: Toby Castellano MD Discharge: Date of : 53 Report #: [id number] We would like to thank you for letting us participate in his care. The patient will also continue with his other medications as needed. <ELECTRONICALLY SIGNED> By: Toby Castellano MD 09/25/19 0922 [id number]. Jordy Castellano MD /[facility]
== END ==
LOC: M.PC 05:02
DX: M54.16 Radiculopathy, lumbar region (principal); I10 Essential (primary) hypertension; F11.20 Opioid dependence, uncomplicated; N40.0 Benign prostatic hyperplasia without lower urinary tract symptoms; Z87.09 Personal history of other diseases of the respiratory system; Z98.890 Other specified postprocedural states; Z88.5 Allergy status to narcotic agent; Z79.899 Other long term (current) drug therapy

== ENCOUNTER → 2019-11-07 | Outpatient (CLI) | payer MEDICARE, OTHER ==
--- NOTE | 2019-11-08 11:31 | PAINCON ---
[facility] [address] [place] [address] PAIN MANAGEMENT CONSULTATION Name: EDMUND SHOEMAKER Room: [facility] SANDRA Martinez#: [id number] Admission: 11/07/19 Attend Phys: Toby Castellano MD Discharge: Date of : 51 Report #: [id number] THIS REPORT FOR: //name// cc: Floyd Child Vincent R. DO THIS REPORT FOR: //name// CC: Toby Child DATE OF SERVICE: 11/07/2019 CHIEF COMPLAINT: The medication regimen is working really well. HISTORY: The patient is a 64-year-old gentleman who has been followed in the pain clinic because of chronic pain. He has a history of back problems. He has undergone back surgeries in the past. He returns today indicating that his current medical regimen of gabapentin, oxycodone and methadone are working very well. He rates his pain as a 1/10. He is happy with the current regimen. He is having no complications. He is able to think clearly. He keeps his medications in a guarded area. He does have his grandchildren who live with him. He has returned today for renewal of his medications. ALLERGIES: MORPHINE. CURRENT MEDICATIONS: Gabapentin 300 mg t.i.d., methadone 5 mg 1 p.o. t.i.d., oxycodone 5 mg 1 p.o. t.i.d., docusate 250 mg, multivitamins, Zofran, Advil, meloxicam 15 mg, atenolol for supraventricular tachycardia, Mucinex 600 mg. PAIN CLINIC ASSESSMENT AND PQRS: 1. The patient is not being treated for rheumatoid arthritis. He has had 3 back surgeries. 2. Height 5 feet 7 inches, weight 130 pounds, BMI is 20. 3. Vital signs: Blood pressure is 145/71, heart rate 65, respiratory rate 16, room air saturation 96%, temperature 97.5. 4. Pain intensity 05/05. 5. Fall history: The patient has not fallen in the last 3 months. 6. Blood thinner. The patient is not on a blood thinning medication. 7. Opioids for 6 weeks, the patient receives medication from one source the pain clinic. 8. Risk assessment tool, low for opioid use. 9. Functional assessment tool, reviewed. 10. Tobacco: The patient continues to smoke cigarettes, has smoked for 45 years. 11. Alcohol. The patient does drink alcoholic beverages. He drinks about 3 [place] [address] PAIN MANAGEMENT CONSULTATION Name: EDMUND SHOEMAKER Room: [facility]#: [id number] Admission: 11/07/19 Attend Phys: Toby Castellano MD Discharge: Date of : 51 Report #: [id number] PHYSICAL EXAMINATION: GENERAL: The patient is a well-developed, well-nourished white male. Appears his stated age. He is alert and oriented x 3. His affect is appropriate. Speech is fluent. HEENT: Normocephalic, atraumatic. Extraocular eye muscles intact. Sclerae nonicteric. Mucous membranes are moist. The patient is wearing a mask. NECK: Without adenopathy or JVD. HEART: Regular rate. ABDOMEN: Nontender. LUNGS: Generally clear. EXTREMITIES: Upper extremity muscle strength judged to be 5/5 for the major muscle groups in the upper extremity. The patient has a well-healed scar in the lower portion of his back. The patient without significant scoliosis, kyphosis or lordosis. Has pain which involves his left buttocks and left leg. IMPRESSION: 1. History of lumbar radiculopathy in the L5-S1 dermatomal distribution, improved. 2. History of spinal cord stimulator placement which he continues to use and provide its benefit. 3. Back surgeries x 3. 4. Hypertension. 5. Back pain treated with complex medical management using opioids. 6. Prostatic hypertrophy. 7. History of bronchitis. RECOMMENDATIONS: We discussed treatment options with the patient. At this juncture, we will continue with his medications. He will call us if he has any concerns. We would like to thank you for letting us participate in his care. A script for his medications of oxycodone 5/325 one p.o. t.i.d. have been written. The patient will also continue with methadone 5 mg 1 p.o. t.i.d. He feels that the gabapentin medication is beneficial as well. We would like to thank you for letting us participate in his care. We hope he continues to improve. <ELECTRONICALLY SIGNED> By: Toby Castellano MD 11/08/19 1131 [id number]. Jordy Castellano MD /nt
== END ==
LOC: M.PC 04:53
PROVIDERS: ATTEND Anesthesiology Pain Medicine
DX: G89.29 Other chronic pain (principal); I10 Essential (primary) hypertension; F11.20 Opioid dependence, uncomplicated; Z87.39 Personal history of other diseases of the musculoskeletal system and connective tissue; Z87.09 Personal history of other diseases of the respiratory system

== ENCOUNTER → 2020-01-02 | Outpatient (CLI) | payer MEDICARE, OTHER ==
--- NOTE | 2020-01-04 10:21 | PAINCON ---
[address] [address] PAIN MANAGEMENT CONSULTATION Name: NAVIDEDMUND NORIEGA Room: [facility] SANDRA Martinez#: [id number] Admission: 01/02/20 Attend Phys: Toby Castellano MD Discharge: Date of : 51 Report #: [id number] THIS REPORT FOR: //name// cc: Floyd Child Vincent R. DO ~ THIS REPORT FOR: //name// CC: Toby Child DATE OF SERVICE: 01/02/2020 CHIEF COMPLAINT: The pain is pretty good and kids ____ back to school. HISTORY: The patient is a 64-year-old gentleman who has been followed in the Pain Clinic because of chronic pain involving his back. He has had back surgery. He has undergone injections in the back, which have been beneficial. At this point, he finds that his current medical regimen of gabapentin, oxycodone and methadone are quite efficacious. He rates his pain as a 2/10. He does have some osteoarthritic changes in his joints, knees and ankles. He would like to continue with his medication. He feels that life has gotten a little easier. He has been watching his grandchildren. They are now off at school. He feels that the some of the stress is moved. He would like to continue his medications. He has returned today and feels that the medications are efficacious. He is not having any untoward problems. Feels that the pain is about 80-85% improved with his current regimen. ALLERGIES: MORPHINE. CURRENT MEDICATIONS: Gabapentin 300 mg t.i.d., methadone 5 mg 1 p.o. t.i.d., oxycodone 5 mg 1 p.o. t.i.d., docusate 250 mg, multivitamins, Zofran, Advil, meloxicam 15 mg, atenolol for supraventricular tachycardia, and Mucinex 600 mg. PAIN CLINIC ASSESSMENT AND PQRS: 1. The patient is not being treated for rheumatoid arthritis. He has had 3 back surgeries. He does have osteoarthritis involving a number of joints, hands, knees and fingers. 2. Height 5 feet 5 inches, weight 132 pounds, BMI is 21.9. 3. Vital Signs: Blood pressure 135/81, heart rate 71, respiratory rate 16, room air saturation 92%, and temperature 96.8. 4. Pain intensity 2/10. 5. Fall history: The patient has not fallen in the last 3 months. 6. Blood thinner. The patient is not on a blood thinning medication. 7. Opioids greater than 6 weeks. The patient received medication from the Pain Clinic. 8. Risk assessment tool, low [place] [address] PAIN MANAGEMENT CONSULTATION Name: EDMUND SHOEMAKER Room: [facility]#: [id number] Admission: 01/02/20 Attend Phys: Toby Castellano MD Discharge: Date of : 51 Report #: [id number] 9. Functional assessment tool, reviewed. 10. Tobacco: The patient continues to smoke cigarettes, has smoked for 45 years. 11. Alcohol. The patient occasionally drinks about 3 alcoholic beverages per week. PHYSICAL EXAMINATION: GENERAL: The patient is a well-developed, well-nourished white male. Appears his stated age. He is alert and oriented x 3. His affect is appropriate. Speech is fluent. HEENT: Normocephalic, atraumatic. Extraocular eye muscles intact. Sclerae nonicteric. Mucous membranes are moist. The patient is wearing a mask. NECK: Without adenopathy or JVD. HEART: Regular rate. LUNGS: Clear. ABDOMEN: Nontender. EXTREMITIES: Upper extremity muscle strength judged to be 5-/5 for the major muscle groups in the upper extremity. The patient complains of some pain and discomfort in the knuckles and hands secondary to osteoarthritic changes. Lower extremity, the patient has a well-healed scar in the mid portion of his back. He is without significant scoliosis, kyphosis or lordosis. Has pain involving the left buttocks and leg when it is problematic. IMPRESSION: 1. History of lumbar radiculopathy in the L5-S1 dermatomal distribution, has improved. 2. History of spinal cord stimulator placement, which continues to be used and provides benefit. 3. Back surgeries x 3. 4. Hypertension. 5. Back pain treated with complex medical management using opioids. 6. Prostatic hypertrophy. 7. History of bronchitis. RECOMMENDATIONS: We discussed treatment options with the patient. We will continue with his opioid medications of methadone 5 mg 1 p.o. t.i.d. We will also continue with Percocet 5/325 one p.o. 2-3 tablets daily. He will continue with gabapentin 300 mg t.i.d. A script for these medications have been provided. We would like to thank you for letting us participate in his care. We hope he continues to improve. <ELECTRONICALLY SIGNED> By: Toby Castellano MD 01/04/20 1021 [id number] [id number]. Jordy Castellano MD /nt
== END ==
LOC: M.PC 09:00
PROVIDERS: ATTEND Anesthesiology Pain Medicine
DX: M54.5 Low back pain (principal); G89.29 Other chronic pain; I10 Essential (primary) hypertension; F11.20 Opioid dependence, uncomplicated; N40.1 Benign prostatic hyperplasia with lower urinary tract symptoms; Z87.09 Personal history of other diseases of the respiratory system; Z87.39 Personal history of other diseases of the musculoskeletal system and connective tissue; Z98.1 Arthrodesis status; Z98.890 Other specified postprocedural states; Z88.8 Allergy status to other drugs, medicaments and biological substances; Z79.899 Other long term (current) drug therapy

== ENCOUNTER → 2020-02-27 | Outpatient (CLI) | payer MEDICARE, OTHER ==
--- NOTE | 2020-03-18 11:03 | PAINCON ---
[address] [address] PAIN MANAGEMENT CONSULTATION Name: NAVIDEDMUND NORIEGA Room: [facility] SANDRA Martinez#: [id number] Admission: 02/27/20 Attend Phys: Toby Castellano MD Discharge: Date of : 51 Report #: [id number] THIS REPORT FOR: //name// cc: Floyd Child Vincent R. DO ~ CC: Toby Child DATE OF SERVICE: 02/27/2020 CHIEF COMPLAINT: Noticed some increased low back pain and I think another injection would be helpful. HISTORY: The patient is a 64-year-old gentleman who has been followed in the pain clinic because of chronic back pain. He has had surgery on a number of occasions. He continues to have pain and discomfort, which radiates down into his back and generally involves the left leg. He has undergone injections in the past and found that those were helpful. He has returned today because of the uptake in his pain. He rates it as a 2-3. Certain activities exacerbate the pain as the day progresses. He has found his medications helpful. His activity is somewhat becoming more limited because of the pain with walking. He does have a spinal cord stimulator in place. He feels overall that he is about 80-85% improved with his current medical regimen. He would like to proceed with an epidural injection. ALLERGIES: MORPHINE. CURRENT MEDICATIONS: Gabapentin 300 mg t.i.d., methadone 5 mg 1 p.o. t.i.d., oxycodone 5 mg 1 p.o. t.i.d., docusate 250 mg, multivitamins, Zofran, Advil, meloxicam 15 mg, atenolol for supraventricular tachycardia, and Mucinex 600 mg. PAIN CLINIC ASSESSMENT AND PQRS: 1. The patient is not being treated for rheumatoid arthritis. He has had 3 back surgeries. He does have osteoarthritis involving a number of joints in his hands, knees and fingers. 2. Height 5 feet 5 inches, weight 133 pounds, BMI is 21. 3. Vital Signs: Blood pressure is 134/87, heart rate 70, respiratory rate 16, room saturation is 95%, and temperature is 96.8. 4. Pain intensity 2-3/10. 5. Fall history: The patient has not fallen since we saw him last. 6. Blood thinner. The patient is not on a blood thinning medication. 7. Opioids greater than 6 weeks. The patient received medication from one source the pain clinic. 8. Functional assessment tool reviewed. 9. Recreational drug use: The patient denies. 10. Tobacco: The patient does smoke cigarettes, has smoked for the last [address] [place] [address] PAIN MANAGEMENT CONSULTATION Name: EDMUND SHOEMAKER Room: [facility]#: [id number] Admission: 02/27/20 Attend Phys: Toby Castellano MD Discharge: Date of : 51 Report #: [id number] years. 11. Alcohol. The patient occasionally drinks 3 alcoholic beverages per week. PHYSICAL EXAMINATION: GENERAL: The patient is a well-developed, well-nourished white male. Appears his stated age. He is alert and oriented x 3. His affect is appropriate. Speech is fluent. HEENT: Normocephalic, atraumatic. Extraocular eye muscles intact. Sclerae nonicteric. Mucous membranes are moist. The patient is wearing a mask. NECK: Without adenopathy. HEART: Regular rate. LUNGS: Generally clear. ABDOMEN: Nontender. MUSCULOSKELETAL: Upper extremity muscle strength judged to be 5-/5 for the major muscle groups in the upper extremity. The patient has some pain and discomfort in the knuckles of his hand secondary to osteoarthritis. He has pain in the lower portion of his back and has a well-healed scar in the lower portion of his back. The patient without significant scoliosis, kyphosis or lordosis. He has pain involving the buttocks and the leg, which radiates down into his calf on the left side. IMPRESSION: 1. History of lumbar radiculopathy in the L5-S1 dermatomal distribution. 2. History of spinal cord stimulator placement. Continues to use it and finds benefit. 3. Back surgery x 3. 4. Hypertension. 5. Back pain treated with complex medical management using opioids. 6. Prostatic hypertrophy. 7. History of bronchitis. RECOMMENDATIONS: We discussed treatment options with the patient. Risks and benefits of an epidural steroid injection were again discussed. Possible complications of the procedure were reviewed. They include but are not limited to infection, worsening pain, no improvement in pain, nerve damage, bleeding, and the patient has been reminded that the COVID-19 is pandemic. Steroids decrease one's immune response. Should the patient become infected, he may have a more difficult time with the virus. He elects to proceed. PROCEDURE NOTE: The patient was taken to the procedure area. He was then assisted in getting on the examination table. A pillow was placed under his abdomen to bolster and improve positioning. Fluoroscopy using anterior, posterior as well as lateral viewing were implemented. At the left L5-S1 area, 0.25% bupivacaine was infiltrated using a 25-gauge needle. A 20-gauge spinal needle was then advanced into the area using a transforaminal approach. After appropriate placement, a total of 80 mg Depo-Medrol, 40 mg triamcinolone was [facility] [address] [place] [address] PAIN MANAGEMENT CONSULTATION Name: EDMUND SHOEMAKER Room: [facility]#: [id number] Admission: 02/27/20 Attend Phys: Toby Castellano MD Discharge: Date of : 51 Report #: [id number] injected. There were no complications. The patient remained in the pain clinic for an appropriate amount of time. A script for his medications of gabapentin 300 mg 1 p.o. t.i.d. has been provided. The patient will also continue with methadone 5 mg 1 p.o. t.i.d. He will continue with oxycodone 5 mg 1 p.o. t.i.d. He will call us if he has any concerns. We would like to thank you for letting us participate in his care. We hope he continues to improve. <ELECTRONICALLY SIGNED> By: Toby Castellano MD 03/18/20 1103 0845 [id number]. Jordy Castellano MD /nt
== END | disposition home or self-care (01) ==
LOC: M.PC 09:26
PROVIDERS: ATTEND Anesthesiology Pain Medicine
DX: M54.16 Radiculopathy, lumbar region (principal); G89.29 Other chronic pain; I10 Essential (primary) hypertension; M19.90 Unspecified osteoarthritis, unspecified site; N40.0 Benign prostatic hyperplasia without lower urinary tract symptoms; Z88.8 Allergy status to other drugs, medicaments and biological substances; Z98.890 Other specified postprocedural states; Z79.899 Other long term (current) drug therapy

== ENCOUNTER → 2020-05-21 | Outpatient (CLI) | payer MEDICARE, OTHER ==
[~2020-05-21] MED LIST changes: +NARCAN4 MG NARES
== END ==
LOC: M.PC 08:55
PROVIDERS: ATTEND Anesthesiology Pain Medicine
DX: M54.5 Low back pain (principal); M79.605 Pain in left leg; I10 Essential (primary) hypertension; N40.1 Benign prostatic hyperplasia with lower urinary tract symptoms; F17.200 Nicotine dependence, unspecified, uncomplicated; Z87.09 Personal history of other diseases of the respiratory system; Z87.39 Personal history of other diseases of the musculoskeletal system and connective tissue

== ENCOUNTER → 2020-07-16 | Outpatient (CLI) | payer MEDICARE, OTHER | LOC: M.PC 09:06 | PROVIDERS: ATTEND Anesthesiology Pain Medicine | DX: M54.5 Low back pain (principal); I10 Essential (primary) hypertension; N40.0 Benign prostatic hyperplasia without lower urinary tract symptoms; M79.605 Pain in left leg; Z88.8 Allergy status to other drugs, medicaments and biological substances; Z98.890 Other specified postprocedural states; Z68.26 Body mass index [BMI] 26.0-26.9, adult; Z79.891 Long term (current) use of opiate analgesic; Z79.899 Other long term (current) drug therapy ==

== ENCOUNTER → 2020-09-10 | Outpatient (CLI) | payer MEDICARE, OTHER | LOC: M.PC 09:16 | PROVIDERS: ATTEND Anesthesiology Pain Medicine | DX: M54.17 Radiculopathy, lumbosacral region (principal); N40.0 Benign prostatic hyperplasia without lower urinary tract symptoms; M54.5 Low back pain; M79.605 Pain in left leg; F17.200 Nicotine dependence, unspecified, uncomplicated; Z79.899 Other long term (current) drug therapy; Z88.5 Allergy status to narcotic agent ==

== ENCOUNTER → 2020-11-07 | Outpatient (CLI) | payer MEDICARE, OTHER | LOC: M.PC 11-05 09:30 | PROVIDERS: ATTEND Anesthesiology Pain Medicine | DX: M54.16 Radiculopathy, lumbar region (principal); I10 Essential (primary) hypertension; N40.0 Benign prostatic hyperplasia without lower urinary tract symptoms; Z79.891 Long term (current) use of opiate analgesic; Z79.899 Other long term (current) drug therapy; Z87.09 Personal history of other diseases of the respiratory system ==

== ENCOUNTER → 2021-01-02 | Outpatient (CLI) | payer MEDICARE, OTHER | LOC: M.PC 09:00 | PROVIDERS: ATTEND Anesthesiology Pain Medicine | DX: M54.16 Radiculopathy, lumbar region (principal); I10 Essential (primary) hypertension; N40.0 Benign prostatic hyperplasia without lower urinary tract symptoms; M79.605 Pain in left leg; Z98.890 Other specified postprocedural states; Z87.09 Personal history of other diseases of the respiratory system ==

== ENCOUNTER → 2021-02-27 | Outpatient (CLI) | payer MEDICARE, OTHER | LOC: M.PC 08:29 | PROVIDERS: ATTEND Anesthesiology Pain Medicine | DX: M54.17 Radiculopathy, lumbosacral region (principal); M79.605 Pain in left leg; I10 Essential (primary) hypertension; N40.0 Benign prostatic hyperplasia without lower urinary tract symptoms; Z88.8 Allergy status to other drugs, medicaments and biological substances; Z79.899 Other long term (current) drug therapy ==

== ENCOUNTER → 2021-03-12 | Outpatient (CLI) | payer MEDICARE, OTHER ==
[2021-03-12 10:33] LABS: CHOLESTEROL 120 mg/dL (<200); HDL CHOLESTEROL 67 mg/dL (>40); LDL CHOLESTEROL 42 mg/dL (<100); TC:HDL 1.8 Ratio (Not establshd); TRIGLYCERIDE 55 mg/dL (<150); VLDL 11 mg/dL (<40)
[2021-03-12 10:36] LABS: SERUM ASSESSMENT Clear
== END ==
LOC: M.LAB 09:53
PROVIDERS: ATTEND Internal Medicine
DX: E78.2 Mixed hyperlipidemia (principal)

== ENCOUNTER → 2021-04-15 | Outpatient (CLI) | payer MEDICARE, OTHER ==
[~2021-04-15] MED LIST changes: -ATENOLOL 100MG100 MG PO; +TENORMIN25 MG PO
== END ==
LOC: M.PC 08:58
PROVIDERS: ATTEND Anesthesiology Pain Medicine
DX: I10 Essential (primary) hypertension (principal); N40.0 Benign prostatic hyperplasia without lower urinary tract symptoms; M54.16 Radiculopathy, lumbar region; M54.50 Low back pain, unspecified; M79.605 Pain in left leg; Z79.899 Other long term (current) drug therapy

== ENCOUNTER → 2021-06-10 | Outpatient (CLI) | payer MEDICARE, OTHER | END | disposition home or self-care (01) | LOC: M.PC 09:02 | PROVIDERS: ATTEND Anesthesiology Pain Medicine | DX: M54.17 Radiculopathy, lumbosacral region (principal); G89.29 Other chronic pain; I10 Essential (primary) hypertension; N40.0 Benign prostatic hyperplasia without lower urinary tract symptoms; F17.210 Nicotine dependence, cigarettes, uncomplicated; Z98.890 Other specified postprocedural states; Z79.899 Other long term (current) drug therapy; Z79.891 Long term (current) use of opiate analgesic; Z86.73 Personal history of transient ischemic attack (TIA), and cerebral infarction without residual deficits; Z88.8 Allergy status to other drugs, medicaments and biological substances ==